=== PATIENT | male | born 1955 | race Caucasian/White ===

== ENCOUNTER → 2022-04-25 09:33 | Outpatient (CLI) | payer MEDICARE, OTHER, SELFPAY ==
[2022-04-25 11:04] LABS: Add Manual Diff / Slide Review NO; Basophils Absolute Auto 100 /uL (0-100); Basophils Percent Auto 1.1 % (0-2); Eosinophils Absolute Auto 500 /uL (0-450); Eosinophils Percent Auto 5.9 % (2-4); Hematocrit 43.7 % (41-53); Hemoglobin 14.8 g/dL (13.5-17.5); Lymphocytes Absolute Auto 1500 /uL (1100-4500); Mean Corpuscular HGB Conc 33.7 % (30-36); Mean Corpuscular Hemoglobin 32.1 PG (26-34); Mean Corpuscular Volume 95.1 fL (80-100); Monocytes Absolute Auto 600 /uL (0-900); Monocytes Percent Auto 7.8 % (3-14); Neutrophils Absolute Auto 5100 /uL (1500-7000); Neutrophils Percent Auto 66.2 % (50-75); Platelet Count 260 X10^3/uL (150-400); Red Cell Distribution Width 13.3 % (11.6-14.8); White Blood Cell Count 7.7 X10^3/uL (4.5-11.0)
[2022-04-25 11:23] LABS: Appearance Urine UA CLEAR; Bilirubin Urine UA NEGATIVE (NEGATIVE); Color Urine UA YELLOW; Glucose Urine UA NEGATIVE (Negative); Ketones Urine UA NEGATIVE (NEGATIVE); Leukocyte Esterase Urine UA NEGATIVE (NEGATIVE); Nitrite Urine UA NEGATIVE (Negative); Occult Blood Urine UA NEGATIVE (Negative); Protein Urine UA NEGATIVE (Negative); Urobilinogen Urine UA 0.2 E.U./dL (0.2); pH Urine UA 6.5 (4.5-8.0)
[2022-04-25 11:36] LABS: Bacteria Urine None Seen; Culture Indicated Urine Cult Not Indicated; RBC Urine None Seen (0-5/HPF); WBC Urine None Seen (0-5/HPF)
[2022-04-25 11:39] LABS: Blood Urea Nitrogen 25 mg/dL (9-20); Calcium 9.3 mg/dL (8.4-10.2); Carbon Dioxide 27 mmol/L (22-32); Chloride 101 mmol/L (98-107); Estimated Glomerular Filt Rate > 60 mL/min (>60); Glucose 99 mg/dL (80-110); HEMOLYSIS < 15 (0-50); Potassium 4.5 mmol/L (3.4-5.1); Sodium 137 mmol/L (137-145)
== END ==
PROVIDERS: Referring Provider Orthopaedic Surgery; Visit Provider Orthopaedic Surgery
DX: Z01.818 Encounter for other preprocedural examination (principal); R73.9 Hyperglycemia, unspecified; Z01.812 Encounter for preprocedural laboratory examination; N39.0 Urinary tract infection, site not specified
CPT/HCPCS: 36415; 80048; 81001; 83036; 85025; 93005; 93010

== ENCOUNTER → 2022-05-08 10:36 | Outpatient (CLI) | payer MEDICARE, OTHER, SELFPAY ==
[2022-05-08 11:16] LABS: COVID19 -Nasal RAPID Negative (Negative)
== END ==
PROVIDERS: Referring Provider Orthopaedic Surgery; Visit Provider Orthopaedic Surgery
DX: Z20.822 Contact with and (suspected) exposure to COVID-19 (principal)
CPT/HCPCS: 87635; C9803

== ENCOUNTER 2022-05-11 11:15 | Observation (INO) | payer MEDICARE, OTHER, SELFPAY ==
[2022-05-01 12:39] VITALS: BMI 42.0
[2022-05-09] VITALS (12 sets, daily range): BP systolic 96–148; BP diastolic 51–94; PULSE 58–89; RESP 10–18; TEMP 35.8–36.5; O2SAT 94–99; BMI 42.0
--- NOTE | 2022-05-09 | DI.RAD.S_ITS ---
PROCEDURE: XR HIP W PEL IF DONE RT 2V INDICATIONS: post total right hip TECHNIQUE: 2 view(s) of the hip acquired. COMPARISON: [facility], CR, XR HIP W PEL IF DONE RT 2V, 05/09/2022, 13:01. FINDINGS: Bones: Patient is status post right hip arthroplasty, with hardware components in expected positions. The hip joint appears congruent. The visualized bony structures appear intact. Soft tissues: Overlying postoperative changes are noted. No suspicious soft tissue densities. IMPRESSION: Post-surgical changes from right hip arthroplasty without definite evidence of acute complication. Dictated by: Bennie Arreola M.D. on 05/09/2022 at 15:38 Approved by: Bennie Arreola M.D. on 05/09/2022 at 15:41
--- NOTE | 2022-05-09 | DI.RAD.S_ITS ---
PROCEDURE: XR HIP W PEL IF DONE RT 2V INDICATIONS: post operative total right hip TECHNIQUE: Single fluoroscopic view of the intraoperative right hip replacement obtained COMPARISON: None. FINDINGS: Bones: Single fluoroscopic intraoperative image demonstrates placement of a right hip arthroplasty. IMPRESSION: Single intraoperative right hip arthroplasty image. Dictated by: Conchis Dutton M.D. on 05/09/2022 at 14:34 Approved by: Conchis Dutton M.D. on 05/09/2022 at 14:34
[2022-05-09] MEDS: LACTATED RINGERS 1,000 ML 120 ML IV ×2 (10:40→13:37)
[2022-05-09] MEDS: VANCOMYCIN 1,000 MG/200 ML PIGGYBACK 200 MG IV (10:41)
[2022-05-09] MEDS: CELECOXIB 200 MG CAPSULE PO (10:48)
[2022-05-09] MEDS: ACETAMINOPHEN 325 MG TABLET 975 MG PO (10:49)
[2022-05-09] MEDS: PREGABALIN 75 MG CAPSULE PO (10:49)
--- NOTE | 2022-05-09 11:03 | P.OP_ITS ---
Operative Date/Time/Diagnoses Date of procedure: 05/09/22 Time of procedure: 11:30 Pre-op diagnosis: right hip OA Post-op diagnosis: same Procedure & Clinicians Procedure: Right total hip arthroplasty posterior approach Same procedure as scheduled: Yes Indications: The patient has had progressively worsening right hip pain with radiographic changes consistent with arthritis. Non-operative management has failed and the patient has requested total hip replacement. The risks, benefits and alternatives to surgery were discussed with the patient prior to proceeding. Risks discussed included, but were not limited to, failure to relieve pain, leg length discrepancy, dislocation, stiffness, infection, nerve damage, deep venous thrombosis, pulmonary embolism, stroke, coma, heart attack, permanent paralysis and , as well as the potential need for eventual revision of the prosthetic. Surgeon: Valentina [facility] [employer] Gunsmith: Bassam Montelongo Anesthesia Type: General and Spinal Operative Notes Findings: Severe right hip osteoarthritis, acceptable stability, acceptable bone Closure Type: primary Specimen(s): none sent Prosthetic devices, grafts, tissues, transplants, or devices: [employer] nephew anthology size 8 standard offset, 56 mm R3 cup, 36 x -3 cobalt chrome head, neutral poly liner, one 6.5 mm screw Applied: drain(s) Estimated Blood Loss (mL): 250 Blood products transfused: none Procedure in detail: The patient was seen in the pre-operative area, where the patient identified the right hip as the operative site and this was marked with my initials. The patient received pre-operative antibiotics and was taken to the operating room and placed on the operative table in the left lateral decubitus position after satisfactory anesthesia. A timekeeper out was performed. The right leg was prepared from the ankle to the iliac crest with ChloroPrep in the usual fashion and draped through sterile drapes. The hip was approached through an approximately 20 cm incision centered over the greater trochanter and curving gently posteriorly as it went proximally. This was carried sharply to the fascia ghazal, which was divided and retracted with a self retaining retractor. The trochanteric bursa was excised with care being taken to avoid the sciatic nerve, which was identified and protected throughout the case. The short external rotators were incised and the capsulomuscular flap was raised and tagged for later repair. The hip was dislocated, and a femoral neck osteotomy performed approximately 15 mm above the lesser trochanter. Retractors were placed around the femur. The canal was opened with a box cutting osteotome, followed by a T handled reamer and a lateralizing reamer. The chili pepper broach was then used, followed by sequential broaching until there was good stability of the broach in the femur. Retractors were placed to expose the acetabulum. The labrum and central soft tissues were removed. Reaming was performed initially going up in 2 mm i ncrements, then 1 mm increments until good bite was obtained with an odd sized reamer. The cup 1 mm larger than the last reamer was then inserted using the appropriate anteversion guides. A trial neutral liner was placed. The broach was placed in the canal. A trial head and neck were then placed and the hip relocated and checked for leg length and stability. An intraoperative film confirmed the component position and no evidence of fracture. The patient was stable in the position of sleep, of squatting, and could be put through a range of motion with 45 degrees internal rotation without dislocation. At 90 degrees flexion, internal rotation to 70? was possible before dislocation. This was felt to be satisfactory and the appropriate components were opened, and the trials were removed. The acetabulum was further stabilized with a single screw. The acetabular liner was impacted into position. The final stem was then impacted into the prepared femoral canal. The femoral heads were tried. The hip was meticulously irrigated with normal saline. Finally the femoral head was impacted onto the stem. The acetabulum was cleared of all material and the hip relocated one final time. The capsulomuscular flap was then repaired to the greater trochanter though an awl hole using the tag sutures. The short external rotators were repaired with a nonabsorbable suture. A deep drain was placed and brought out anteriorly. The fascia ghazal was closed with Vicryl. The subcutaneous layer was closed with barbed sutures and skin mervin. A valerie dressing was applied and the patient was taken to recovery having tolerated the procedure well. Complications: none Post-operative Condition: stable Disposition: Acute Care Plan for aftercare: The patient will be maintained on a standard total hip replacement protocol with weight bearing as tolerated and posterior hip precautions. The patient will receive Aspirin and sequential compression devices for DVT prophylaxis. The patient will be discharged home when safe for the home environment.
--- NOTE | 2022-05-09 11:03 | PM.PREOP ---
Pre-operative Note COVID-19 COVID-19 status: Negative Interval Note History & Physical reviewed/Exam performed by Physician: Yes Changes to H&P: No
[2022-05-09] MEDS: ALBUTEROL 2.5 MG/3 ML NEB (ADULT) INH (11:20)
[2022-05-09] MEDS: TRANEXAMIC ACID 1,000 MG VIAL 2000 MG INJ ×2 (12:00→13:38)
[2022-05-09] MEDS: CEFAZOLIN 2 GM/100 ML PREMIX 100 ML IV (12:00)
--- NOTE | 2022-05-09 12:34 | SUR.OPER ---
Lateral on padded OR bed. Gel axillary roll. Arms secured on padded armboard with pillow supporting top arm. Gel pad X2 under left arm and supporting wrist. Padded hip positioner braces x4 - anterior and posterior chest and pelvis. Additional gel pad used anterior pelvis. Gel pad under bottom leg from knee to foot and secured with tape over sheet.
[2022-05-09] MEDS: SODIUM CHLORIDE IRRIG SOLUTION 250 ML, POVIDONE-IODINE SPONGE STICKS 1 APPLIC IRR (12:43)
[2022-05-09] MEDS: BUPIVACAINE 0.5% W/ EPI (PF) 30 ML VIAL INJ (12:49)
[2022-05-09] MEDS: BUPIVACAINE LIPOSOME 266 MG/20 ML VIAL INJ (12:49)
[2022-05-09] MEDS: SODIUM CHLORIDE 0.9% FLUSH 10 ML IV (12:54)
[2022-05-09] MEDS: EPINEPHrine 1 MG/ML IRR (13:29)
[2022-05-09] MEDS: OXYCODONE IR 5 MG TABLET 10 MG PO (14:49)
[2022-05-09] MEDS: OXYCODONE IR 10 MG TABLET PO ×2 (16:21→20:42)
[2022-05-09] MEDS: polyethylene glycoL 3350 17 GM POWD.PACK PO (16:22)
[2022-05-09] MEDS: HYDROMORPHONE 2 MG TABLET PO (16:49)
[2022-05-09] MEDS: LACTATED RINGERS 1,000 ML 125 ML IV (17:00)
[2022-05-09] MEDS: IBUPROFEN 400 MG TABLET PO (19:09)
[2022-05-09] MEDS: ACETAMINOPHEN 325 MG TABLET 650 MG PO (19:10)
[2022-05-09] MEDS: TRAVOPROST 0.004% 1 EACH EYE-BOTH (21:02)
[2022-05-09] MEDS: ASPIRIN EC 81 MG TABLET PO (21:02)
[2022-05-09] MEDS: DOCUSATE 100 MG CAPSULE PO (21:02)
[2022-05-09] MEDS: CEFAZOLIN 3 GM IN 0.9 % NACL 3 GM/100 ML PLAST..BAG IV (21:50)
--- NOTE | 2022-05-09 23:12 | PC.NURSE ---
Pt is alert and oriented X 4 able to make needs known , On Room air while awake but placed on 022l for sleep with history of Obstructive sleep apnea. pt maintaining oxygen levels at mid to high 90s with Oxygen. voids small frequent amounts, bladder scan minimal 30 -50 post void. will con to monitor.
[2022-05-10] VITALS: BP 107/69; PULSE 84; RESP 17; TEMP 36.9; O2SAT 96
[2022-05-10] MEDS: OXYCODONE IR 10 MG TABLET PO ×4 (00:52→12:42)
[2022-05-10] MEDS: IBUPROFEN 400 MG TABLET PO ×5 (00:53→23:20)
[2022-05-10] MEDS: LACTATED RINGERS 1,000 ML 125 ML IV (00:56)
[2022-05-10 04:00] VITALS: BP 104/56; PULSE 76; RESP 19; TEMP 36.6; O2SAT 96
[2022-05-10] MEDS: CEFAZOLIN 3 GM IN 0.9 % NACL 3 GM/100 ML PLAST..BAG IV (04:05)
[2022-05-10] MEDS: ACETAMINOPHEN 325 MG TABLET 650 MG PO ×4 (05:02→23:20)
[2022-05-10 07:04] LABS: Hematocrit 36.3 % (41-53); Hemoglobin 12.2 g/dL (13.5-17.5)
[2022-05-10 08:21] VITALS: BP 116/62; PULSE 82; RESP 18; TEMP 36.6; O2SAT 95
[2022-05-10] MEDS: ASPIRIN EC 81 MG TABLET PO ×2 (09:47→22:04)
[2022-05-10] MEDS: DOCUSATE 100 MG CAPSULE PO ×2 (09:48→22:04)
[2022-05-10] MEDS: AMLODIPINE 5 MG TABLET PO (09:48)
--- NOTE | 2022-05-10 10:06 | PT.IIE ---
Current Diagnoses Unilateral primary osteoarthritis, right hip (05/09/22) Unilateral primary osteoarthritis, left knee (05/09/22) Surgery Performed Operation Date: 05/09/22 12:00 Actual Procedures p Total Hip Arthroplasty(Right) - Valentina Allen MD Surgical History (Last Reviewed 05/10/22 @ 11:16 by Lexii Abraham PA-C) History of urologic surgery (~1994) S/P gastroplasty (~1986) Medical History (Last Reviewed 05/10/22 @ 11:16 by Lexii Abraham PA-C) Dry skin Enlarged prostate Glaucoma HTN (hypertension) Neuropathy Osteoarthritis Suspected sleep apnea Physical Therapy Inpatient Evaluation/Re-Eval M1 PT/OT-IP Prior Functional Status Start: 05/10/22 13:19 Freq: NEEDED Status: Active Protocol: Document 05/10/22 10:06 AB (Rec: 05/10/22 13:34 AB [email or web address]) Medical Review Prior Functional Status Medical History Reviewed Yes Communication able to make needs known Mobility and Gait pt staed that he is indpeendent with all mobilities and ambulation indoors without AD but occasionally uses a SPC; uses a SPC for outdoor mobility Social History Household Members none Living Arrangements Apartment/Condo Number of Floors (Floors) One Floor Number of Stairs To Enter/Railing? no steps to enter Home Environment High Toilet,Walk in Shower, Built-In Shower Seat Home Equipment Four Wheel Walker,Straight Cane,Shower Seat without Backrest,Hand Held Shower,Grab Bars In Shower Additional Social History Comment pt stated that his friend will stay with him for 2-3 days to assist him M2 PT-IP Current Condition Start: 05/10/22 13:19 Freq: NEEDED Status: Active Protocol: Document 05/10/22 10:06 AB (Rec: 05/10/22 13:34 AB [email or web address]) Physical Therapy Current Condition Current Condition Evaluation Date 05/10/22 Treatment Diagnosis s/p R AUGIE posterior approach; difficulty in walking Onset Date 05/09/22 M3 PT-IP Subjective Start: 05/10/22 13:19 Freq: NEEDED Status: Active Protocol: Document 05/10/22 10:06 AB (Rec: 05/10/22 13:34 AB [email or web address]) Subjective Physical Therapy Visit Type Type Initial Evaluation Visit Start Time 10:06 Visit Stop Time 11:08 Total Visit Minutes 62 Number of FABRIC WORKER LEADER Visits 0 Physical Therapy Visit Comments Patient Comments agreeable to do PT Therapy Pain Assessment Pain When Pain Assessed At Rest Pain Present Pain Present Pain Reported Location Right Hip Intensity 5 Scale Used Numeric (0 - 10) Pain Management Techniques Apply Cold,Distraction, Modification of Treatment,Re- positioning,Timing of Activity with Medications M4 PT-IP Mobility and Gait Start: 05/10/22 13:19 Freq: NEEDED Status: Active Protocol: Document 05/10/22 10:06 AB (Rec: 05/10/22 13:34 AB [id number]) PT-Bed Mobility Assessment Supine to Sit Supine to Sit Moderate Assistance,1 Person Assistance PT-Transfer Assessment Sit to and From Stand Sit to and from Stand Moderate Assistance,Maximum Assistance,1 Person Assistance ,Use of Upper Extremities Equipment Transfer Assistive Device Gait Belt,Front Wheeled Walker Orthotic/Prosthetic Devices or Brace: No Transfers Transfer Destination Chair Transfer Technique ambulated Transfer Ability Level of Assist Moderate Assistance,1 Person Assistance,Use of Upper Extremities Comments Mobility Comments reviewed posterior hip precautions with pt and pt requires cues. pt completed supine to sit mod A for LE movement and max cues for hip precautions. pt able to sit on EOB CGA. completed sit to stand from EOB mod A to max A and max cues. pt with trunk rotation to the L during sit to stand and educated again on hip precaution of not turning LE inwards. pt ambulated to the chair using FWW mod A and max cues for quads activation. pt wanting to use the urinal . able to stand using FWW for support mod A while NAC assisted pt with use of urinal . pt sat back on chair. mod A for descent. positioned on chair. call light and table placed within reach. caregiver set up at 1pm today with pt's friend. also informed pt that he will need a FWW. pt given options and wants a FWW dispensed through the hospital. informed case florentin for FWW order. Gait Assessment Gait Gait Assistance Required: Moderate Assistance,1 Person Assist Distance (Feet) 15 Able to Maintain Weight Bearing Status No During Gait Assistive Devices Assistive Device Gait Belt,Front Wheeled Walker Orthotic/Prosthetic Devices or Brace: No Gait Deviations General Gait Pattern Antalgic,Decreased Stride Length,Decreased Feet Clearance Factors Limiting Gait Function Factors Limiting Gait Function Decreased Activity Tolerance, Decreased Strength,Difficulty Following Directions,Limited Range of Motion,Pain,Poor Balance,Poor Safety Awareness PT-Balance Assessment Sitting Balance and Reactions Static Sitting Balance Ability Good Dynamic Sitting Balance Ability Fair Standing Balance and Reactions Static Standing Balance Ability Poor Dynamic Standing Balance Ability Poor Device Used FWW M5 PT-IP Objective Assessments Start: 05/10/22 13:19 Freq: NEEDED Status: Active Protocol: Document 05/10/22 10:06 AB (Rec: 05/10/22 13:34 [email or web address]) Orientation Orientation/Cognition Level of Alertness Alert Orientation Name,Place,Situation Language Function Ability Hard of Hearing Safety Awareness Decreased Safety Awareness Memory Description Short Term Impaired Gross Range of Motion Lower Extremity ROM Assessment Within Functional Limits Strength Lower Extremity Strength Assessment Bilaterally Impaired Comments Strength Comments RLE: 3-/5 LLE: 3+/5 Coordination Assessment Gross Coordination Gross Coordination WNL Muscle Tone Muscle Tone WNL Yes M6 PT-IP Treatment Start: 05/10/22 13:19 Freq: NEEDED Status: Active Protocol: Document 05/10/22 10:06 AB (Rec: 05/10/22 13:34 [email or web address]) Physical Therapy Treatment Education Education Provided Precautions,Weight Bearing Status,Post-Op Packet,Safety M7 PT-IP Assessment and Plan Start: 05/10/22 13:19 Freq: NEEDED Status: Active Protocol: Document 05/10/22 10:06 AB (Rec: 05/10/22 13:34 [email or web address]) PT Summary Assessment and Plan Potential Rehabilitation Potential Fair Status of Condition at Evaluation Evolving Summary Impairments Pain,ROM,Strength,Balance, Coordination,Sensation,Tone, Cognition,Bed Mobility, Transfers,Gait,Activity Tolerance Assessment Summary pt requiring mod to max A with mobility using FWW. caregiver training set up at 1pm today. will continue to assess progress and depending if caregiver will be able to assist pt safely but at this time may require SNF rehab. Goals Bed Mobility Goal Standby Assistance Transfer Goal Standby Assistance,Front Wheeled Walker Gait Goal Standby Assistance,Front Wheel Walker Gait Distance 150 Other Goals improve bed mobility, transfers using fWW and ambulation using FWW ~ 200 ft mod I Days to Meet Goals 10 Frequency of Treatment Frequency Of Treatment Twice a Day Treatment Plan Physical Therapy Treatment Plan Bed Mobility Training,Transfer Training,Gait Training, Therapeutic Exercise,Balance Retraining,Post Op Education, Discharge Planning,Hot or Cold Pack,Neuromuscular Re-ed, Coordination Retraining,Manual Therapy Other Recommendations and Next Treatment caregiver trainin/22 @ 1pm Focus Precautions Posterior Hip Precautions No Hip Flexion > 90 degrees,No Hip Internal Rotation,No Hip Adduction Weight Bearing Status Weight Bearing Status Weight Bear as Tolerated Allowed Weight Bearing Amount (enter % RLE WBAT or #) (%) Recommendations To Nursing Amount of Assist Needed 1 Person Assist Discharge Recommendations PT Discharge Recommendations Home with 11/03 Assist Available,Home Health,SNF Rehab,Home vs SNF Equipment Needed for Home Before FWW Discharge Transportation Needs at Discharge Private Vehicle,Wheelchair/ Cabulance
--- NOTE | 2022-05-10 11:15 | PM.PNPO.1 ---
Subjective Subjective Date Patient Seen: 05/10/22 Time Patient Seen: 07:35 Interval history: Patient is complaining of moderate to severe right hip pain. He has been using oxycodone 5-10 mg, Dilaudid 2 mg orally in addition a Tylenol and ibuprofen. He has not worked with physical therapy yet. He does not have anyone to care for him at home until tomorrow. Exam Vital Signs (past 8 hours): - 05/10/22 04:00 05/10/22 08:21 Temperature 97.9 F 97.8 F Pulse Rate 76 82 Respiratory Rate 19 18 Blood Pressure 104/56 L 116/62 Pulse Oximetry 96 95 Oxygen Flow Rate 0 Oxygen Delivery Method Room Air Oxygen Flow Rate 0 Narrative Exam Narrative: Pleasant 67-year-old male, resting comfortably in bed, no acute distress. Rosmery dressing is in place and functioning, dressing is clean, dry, intact. No surrounding erythema or induration. Bilateral lower extremity: Motor functions are grossly intact, sensation is grossly intact to light touch, calves are soft and nontender to palpation. Hemovac was removed on exam today. Objective Labs Result Diagrams: 05/10/22 06:32 Labs: Laboratory Results - last 24 hr 05/10/22 06:32 Hgb 12.2 L Hct 36.3 L PFSH Medical History Dry skin Enlarged prostate Glaucoma HTN (hypertension) Neuropathy Osteoarthritis Suspected sleep apnea Surgical History History of urologic surgery (~1994) S/P gastroplasty (~1986) Social History household members: none Smoking Status: Current every day smoker alcohol intake: former Assessment & Plan Post-op Postoperative Procedures: Procedures Operation Date: 05/09/22 12:00 Actual Procedure Side Surgeon p Total Hip Arthroplasty Right Valentina Allen MD Postoperative day: 1 Postoperative status: marginal pain control Postoperative status narrative: -stable status post right total hip arthroplasty, posterior approach -marginal pain control -orthostatic hypotension Postoperative plan narrative: -mobilize with PT. Weightbearing as tolerated with front wheel walker. Maintain posterior hip precautions x6 weeks -continue with multimodal pain management. The patient has a prescription for oxycodone 5 mg from his preop appointment with Dr. Allen at home. -aspirin 81 mg twice daily x6 weeks for DVT prophylaxis -continue to monitor hypotension, hold any BP meds until BP is greater than 120/80. -DC home likely tomorrow
[2022-05-10 12:03] VITALS: BP 122/77; PULSE 81; RESP 18; TEMP 37; O2SAT 95
[2022-05-10] MEDS: SODIUM CHLORIDE 0.9% 1,000 ML 100 ML IV (12:32)
--- NOTE | 2022-05-10 14:15 | PT.IPTN ---
Current Diagnoses Unilateral primary osteoarthritis, right hip (05/09/22) Unilateral primary osteoarthritis, left knee (05/09/22) Surgery Performed Operation Date: 05/09/22 12:00 Actual Procedures p Total Hip Arthroplasty(Right) - aVlentina Allen MD Physical Therapy Treatment Note M2 PT-IP Current Condition Start: 05/10/22 13:19 Freq: NEEDED Status: Active Protocol: Document 05/10/22 10:06 AB (Rec: 05/10/22 13:34 AB [id number]) Physical Therapy Current Condition Current Condition Evaluation Date 05/10/22 Treatment Diagnosis s/p R AUGIE posterior approach; difficulty in walking Onset Date 05/09/22 M3 PT-IP Subjective Start: 05/10/22 13:19 Freq: NEEDED Status: Active Protocol: Document 05/10/22 13:44 KS (Rec: 05/10/22 15:08 KS [id number]) Subjective Physical Therapy Visit Type Type Treatment Note Visit Start Time 13:44 Visit Stop Time 14:15 Total Visit Minutes 31 Notes Friend present for caregiver training Number of DONOR RELATIONS MANAGER Visits 1 Physical Therapy Visit Comments Patient Comments agreeable to do PT Therapy Pain Assessment Pain When Pain Assessed During Mobility Pain Present Pain Present Pain Reported Location Right Hip Scale Used not quantified Pain Behaviors Guarding,Holding Area Pain Management Techniques Distraction,Elevation, Modification of Treatment,Re- positioning M4 PT-IP Mobility and Gait Start: 05/10/22 13:19 Freq: NEEDED Status: Active Protocol: Document 05/10/22 13:44 KS (Rec: 05/10/22 15:08 KS [id number]) PT-Bed Mobility Assessment Supine to Sit Supine to Sit Standby Assistance,1 Person Assistance,Bedrails Sit to Supine Sit to Supine Standby Assistance,1 Person Assistance,Head of Bed Elevated,Bedrails Scooting Scooting to Edge of Bed Contact Guard Assistance PT-Transfer Assessment Sit to and From Stand Sit to and from Stand Minimal Assistance,1 Person Assistance,Use of Upper Extremities Equipment Transfer Assistive Device Gait Belt,Front Wheeled Walker Orthotic/Prosthetic Devices or Brace: No Transfers Transfer Destination Bed Transfer Technique Lateral steps Transfer Ability Level of Assist Minimal Assistance,1 Person Assistance,Use of Upper Extremities Comments Mobility Comments Pt in bed upon arrival and caregiver present. Pt able to recall 2/3 precautions (No IR) SBA to CGA w/ cues for sup<> sit and scooting EOB. Demonstrated gait belt application and FWW guarding to pts caregiver who was able to provide Min A for pt sit<> stand. Upon standing, pt tremulous, BP stable. Pt then reported lightheadedness and stated he could not tolerate ambulation this PM. He was able to take 3 lateral steps head of bed for repositioning. CGA for sit<>sup. Reveiwed exercises and pt left in bed w / all needs in reach, lightheadedness subsided. Gait Assessment Gait Gait Assistance Required: Minimum Assistance,1 Person Assist Distance (Feet) 2 Able to Maintain Weight Bearing Status No During Gait Assistive Devices Assistive Device Gait Belt,Front Wheeled Walker Orthotic/Prosthetic Devices or Brace: No Gait Deviations General Gait Pattern Antalgic,Decreased Stride Length,Decreased Feet Clearance Factors Limiting Gait Function Factors Limiting Gait Function Decreased Activity Tolerance, Decreased Strength,Difficulty Following Directions,Limited Range of Motion,Pain,Poor Balance,Poor Safety Awareness Comments Gait Comments 3x lateral steps towards HOB only, unable to tolerate further ambulation this PM. PT-Balance Assessment Sitting Balance and Reactions Static Sitting Balance Ability Good Dynamic Sitting Balance Ability Fair Standing Balance and Reactions Static Standing Balance Ability Poor Dynamic Standing Balance Ability Poor Device Used FWW M5 PT-IP Objective Assessments Start: 05/10/22 13:19 Freq: NEEDED Status: Active Protocol: Document 05/10/22 10:06 AB (Rec: 05/10/22 13:34 AB [id number]) Orientation Orientation/Cognition Level of Alertness Alert Orientation Name,Place,Situation Language Function Ability Hard of Hearing Safety Awareness Decreased Safety Awareness Memory Description Short Term Impaired Gross Range of Motion Lower Extremity ROM Assessment Within Functional Limits Strength Lower Extremity Strength Assessment Bilaterally Impaired Comments Strength Comments RLE: 3-/5 LLE: 3+/5 Coordination Assessment Gross Coordination Gross Coordination WNL Muscle Tone Muscle Tone WNL Yes M6 PT-IP Treatment Start: 05/10/22 13:19 Freq: NEEDED Status: Active Protocol: Document 05/10/22 13:44 KS (Rec: 05/10/22 15:08 KS [id number]) Physical Therapy Treatment Exercises Exercises Ankle Pumps,Gluteal Sets,Quad Sets Education Education Provided Precautions,Weight Bearing Status,Post-Op Packet,Safety Other Treatments Other Treatment Performed Initiated caregiver training M7 PT-IP Assessment and Plan Start: 05/10/22 13:19 Freq: NEEDED Status: Active Protocol: Document 05/10/22 13:44 KS (Rec: 05/10/22 15:08 KS [id number]) PT Summary Assessment and Plan Potential Rehabilitation Potential Fair Summary Impairments Pain,ROM,Strength,Balance, Coordination,Sensation,Tone, Cognition,Bed Mobility, Transfers,Gait,Activity Tolerance Progress Towards Goals Slow Progress due to Pain,Slow Progress due to Activity Tolerance Assessment Summary Pt limited by pain and lghtheadedness this PM. Initiated caregiver training w / pts friend who was able to apply gait belt, provide assistance and cues for sit<> stand w/ FWW. Pt SBA to CGA for bed mobility w/ bed rails and Min A for sit<>stand w/ FWW. He was unable to tolerate ambulation this treatment and will need to increase ambulation distance prior to d /c since he plans on going home. Will assess pts mobility and carryover of caregiver training tomorrow 05/11 at 10: 30 AM. Goals Bed Mobility Goal Standby Assistance Transfer Goal Standby Assistance,Front Wheeled Walker Gait Goal Standby Assistance,Front Wheel Walker Gait Distance 150 Other Goals improve bed mobility, transfers using fWW and ambulation using FWW ~ 200 ft mod I Days to Meet Goals 10 Frequency of Treatment Frequency Of Treatment Twice a Day Treatment Plan Physical Therapy Treatment Plan Bed Mobility Training,Transfer Training,Gait Training, Therapeutic Exercise,Balance Retraining,Post Op Education, Discharge Planning,Hot or Cold Pack,Neuromuscular Re-ed, Coordination Retraining,Manual Therapy Other Recommendations and Next Treatment caregiver trainin/23 @ [facility] 1030 am Precautions Posterior Hip Precautions No Hip Flexion > 90 degrees,No Hip Internal Rotation,No Hip Adduction Weight Bearing Status Weight Bearing Status Weight Bear as Tolerated Allowed Weight Bearing Amount (enter % RLE WBAT or #) (%) Recommendations To Nursing Amount of Assist Needed 1 Person Assist Discharge Recommendations PT Discharge Recommendations Home with 11/03 Assist Available,Home Health,Home vs SNF Equipment Needed for Home Before FWW Discharge Transportation Needs at Discharge Private Vehicle
--- NOTE | 2022-05-10 14:42 | CM.DANOTE ---
Patient is a 67 yo male who was admitted on 05/09/22 for RTHA. Pt has MCR and [employer] Supp for insurance and his PCPis Zoya Hammonds. EMR was reviewed. Per Ortho, pt tolerated procedure well but likely not stable for d/c yet today. Per PT, recommending home vs SNF although pt has plans for home and PT requested orders for FWW. CG training set up with pt's friend for this PM. SW met bedside with pt and explained role and pt confirms he lives in [place] alone and is active and independent at baseline and works but has until mid Dec off for this surgery to recover. Pt denies any hx of HH or SNF. Pt states his friend plans to take the rest of the week off and stay with pt for assist and his friend has a hx of her own LTHA and aware of the precautions and limitations and therefore will be a good CG for pt at d/c. Pt states she would be available for CG training prior to discharge. Pt states he contacted an outpt PT clinic prior to surgery and he is set up to begin within a week of discharge. Pt currently does not anticipate any needs. Plan: SW to follow closely for further PT to confirm safe plan of home with friend assist and outpt PT and r/o possible HH needs. Pt currently declines the need for SNF. SCOOTER Ryan Discharge Planning/Care Management CM Discharge Assessment Start: 05/10/22 14:40 Freq: Status: Active Protocol: Document 05/10/22 14:40 BF (Rec: 05/10/22 14:42 [id number]) Discharge Planning Assessment Assigned Field Marketing Specialist SCOOTER Ly Advance Directives? No Advance Directives on File No History Provided By Patient,Medical Record Has Patient been admitted in last 30 No days? Prior Living Arrangements Apartment/Condo Household Members none Type of transporation used prior to Drives own vehicle admit Independent with ADL's Yes Is patient alert and oriented? Yes Caregiver for Another No Community Services used prior to Physical Therapy admission: Patient/Family Preference OP PT Therapy Barriers to Discharge No Discharge Plan Home Community Services Physical Therapy Transportation Arrangement Friend is planning to stay at d/c and provide transport home Referrals Initiated None needed Additional Comment r/o HH, pt already has outpt PT set up Whiteboard Updated in Patient Room with Yes name and ext. # of Field Marketing Specialist Review Status In Process Please Provide Date Initial DC 05/10/22 Assessment Was Performed Next Review Type Continued Stay Review Pre-Anesthesia Assessment Start: 05/01/22 12:39 Freq: Status: Complete Protocol: Document 05/01/22 12:39 [facility] (Rec: 05/01/22 13:42 CAB [id number]) Pre-Anesthesia Assessment Preferred Name Pat Patient Information Reviewed Via Phone Assessment Assessment Completed With Patient Diagnostic Results BMP/CMP,CBC,EKG Comment Labs/ECG @ 04/25/22, COVID screen @ 05/07/22 Primary Care Provider Zoya Hammonds Seen Specialist in Last 12 Months Yes Specialist Seen Orthopedist Primary Language Tongan Calender Machine Operator Required No Height 175.26 cm Weight 129.274 kg Body Mass Index (BMI) 42.0 Hearing Ability Normal Visual Assist Magnifying Glass Dentition Type Teeth, Natural Present,Teeth, Missing Barriers to Learning None Other Aids No Hx Anesthesia Reactions No Hx Family Anesthesia Reaction No Hx Malignant Hyperthermia No Hx Blood Transfusions No Anesthesia Review Requested No Disciplinary Hearing Officer No alcohol intake former Alcohol Intake Frequency Other: Quit 30 years ago Smoking Status Current every day smoker Smoking cigarettes per day 6 Substance Use Type does not use Pain Present Pain Reported Musculoskeletal Symptoms Abnormal Gait,Difficulty Walking,Joint Pain,Limited Range of Motion History of Falling (Recent or History of No ) Patient is completely paralyzed or No completely immobile Prosthesis or Orthotic Device Cane Mental Status Oriented to own ability Is patient on oxygen? No Does patient have WAYNE/SOB No Hx Sleep Apnea No Suspected Sleep Apnea Yes: STOP BANG positive Currently Taking a Beta Rony No Can You Climb a Flight of Stairs Without No: Pt states r/t pain SOB Hx Chest Pain No Hx SOB No Hx Syncope or Dizziness No Anti-Coagulant Therapy No Has a Hand Rounder No Cardiac Testing No Hx Pacemaker/ICD No Pacemaker Rep Required? No Cardiac Clearance Received Not Applicable Diet Type At Home Regular dysphagia No: Does not eat beef Gastrointestinal Symptoms Constipation Bladder Pattern Frequency,Nocturia,Urgency Urinary Catheter Present No Hx Urinary Self Catheterization No Diabetes No HgbA1C 6.0 Date 04/25/22 Hx Drug Resistant Organism No Presence of External or Internal Medical No Devices Have you had any close contact with No someone diagnosed with COVID-19? Received a COVID vaccine? Yes Received all doses? Yes Marital Status / x 1 year Lives With none Prior Living Arrangements Apartment/Condo Number of Floors (Floors) One Floor Support System Friend(s) Does the Patient Have Assistance After Yes: Friend will stay with pt Surgery for 2 days ONLY after surgery Patient Discharge Plan Description Return Home Comment Pt advised 1-2 day length of stay per surgeon Feels Safe in Current Environment Yes Been Physically Hurt or Threatened By a No Person in Current Environment Do you have thoughts of harming yourself None or others? Are you currently considering suicide? No Do you have a plan to hurt yourself or No Plan others? Do You Have Any Spiritual Beliefs That No May Affect Your HC Choices? Do You Have Any Cultural Practices That No May Affect Your HC Choices? Who Can We Speak to About Patient's Care Family, friends Identifying Code for Release of Patient Declines to issue Information Health Care Proxy/Next of Kin Karson (son) Health Care Proxy Emergency Contact Name Faith Morris (good friend who will stay w/pt @ [place]) Emergency Contact Advance Directives? No Power of Train Station Server No PAC Instructions Durable medical equipment, Medications to take/avoid, Nasal antibiotic,No ETOH/ petroleum product on skin DOS, NPO,Pre-surgical wash,Sensory aids,Sturdy shoes/comfortable clothes,Do not bring valuables and remove jewelry Stop Bang Assessment Do you snore loudly (louder than talking Yes or loud enough to be heard through closed doors) Do you have, or are you being treated Yes for, high blood pressure Is your BMI more than 35 kg/m2 Yes Age over 50 Yes Estimated neck circumference greater Unknown than 40cm or 16in Gender male Yes Result Positive
[2022-05-10 18:11] VITALS: BP 105/61; PULSE 84; RESP 18; TEMP 36.9; O2SAT 93
[2022-05-10] MEDS: OXYCODONE IR 5 MG TABLET PO (18:43)
[2022-05-10] MEDS: polyethylene glycoL 3350 17 GM POWD.PACK PO (18:43)
[2022-05-10 21:30] VITALS: BP 132/73; PULSE 81; RESP 18; TEMP 36.9; O2SAT 94
[2022-05-11] MEDS: SODIUM CHLORIDE 0.9% 1,000 ML 100 ML IV (03:10)
[2022-05-11 03:40] VITALS: BP 121/74; PULSE 85; RESP 17; TEMP 36.7; O2SAT 90
[2022-05-11] MEDS: IBUPROFEN 400 MG TABLET PO ×2 (06:16→13:22)
[2022-05-11] MEDS: ACETAMINOPHEN 325 MG TABLET 650 MG PO ×2 (06:17→13:21)
[2022-05-11 07:14] VITALS: O2SAT 97
[2022-05-11 08:26] VITALS: BP 103/65; PULSE 73; RESP 18; TEMP 36.3; O2SAT 96
[2022-05-11] MEDS: DOCUSATE 100 MG CAPSULE PO (08:47)
[2022-05-11] MEDS: AMLODIPINE 5 MG TABLET PO (08:47)
[2022-05-11] MEDS: ASPIRIN EC 81 MG TABLET PO (08:47)
--- NOTE | 2022-05-11 08:48 | PC.NURSE ---
Pt states, still haven't had bowel movement yet. Educated pt about walking, drinking more fluids, and how oxycodone can contribute to constipation. Discussed miralax for constipation. Pt states, will try miralax after he is done with his breakfast.
--- NOTE | 2022-05-11 11:22 | PT.IPTN ---
Current Diagnoses Unilateral primary osteoarthritis, right hip (05/11/22) Unilateral primary osteoarthritis, left knee (05/11/22) Surgery Performed Operation Date: 05/09/22 12:00 Actual Procedures p Total Hip Arthroplasty(Right) - Valentina Allen MD Physical Therapy Treatment Note M2 PT-IP Current Condition Start: 05/10/22 13:19 Freq: NEEDED Status: Active Protocol: Document 05/10/22 10:06 AB (Rec: 05/10/22 13:34 AB [id number]) Physical Therapy Current Condition Current Condition Evaluation Date 05/10/22 Treatment Diagnosis s/p R AUGIE posterior approach; difficulty in walking Onset Date 05/09/22 M3 PT-IP Subjective Start: 05/10/22 13:19 Freq: NEEDED Status: Active Protocol: Document 05/11/22 10:52 KS (Rec: 05/11/22 13:49 KS [id number]) Subjective Physical Therapy Visit Type Type Treatment Note Visit Start Time 10:52 Visit Stop Time 11:22 Total Visit Minutes 30 Notes Friend present for caregiver training Number of SWITCH HOUSE OPERATOR Visits 2 Physical Therapy Visit Comments Patient Comments agreeable to do PT Therapy Pain Assessment Pain When Pain Assessed During Mobility Pain Present Pain Present Pain Reported M4 PT-IP Mobility and Gait Start: 05/10/22 13:19 Freq: NEEDED Status: Active Protocol: Document 05/11/22 10:52 KS (Rec: 05/11/22 13:49 KS [id number]) PT-Bed Mobility Assessment Supine to Sit Supine to Sit Standby Assistance,1 Person Assistance,Bedrails Sit to Supine Sit to Supine Standby Assistance,1 Person Assistance,Head of Bed Elevated,Bedrails Scooting Scooting to Edge of Bed Contact Guard Assistance PT-Transfer Assessment Sit to and From Stand Sit to and from Stand Contact Guard Assistance,1 Person Assistance,Use of Upper Extremities Equipment Transfer Assistive Device Gait Belt,Front Wheeled Walker Orthotic/Prosthetic Devices or Brace: No Transfers Transfer Destination Bed Transfer Technique Pt ambulated Transfer Ability Level of Assist Contact Guard Assistance,1 Person Assistance,Use of Upper Extremities Comments Mobility Comments Pt in bed upon arrival and caregiver present. Pt on 1L O2 and O2 96%. Pt SBA for bed mobility, pts caregiver applied gait belt and assist for sit<>stand. Pt ambulated ~ 60 ft in room w/ FWW SBA w/ cues for upright posture. Pts O2 >94% on RA during all mobility. Returned to bed and reviewed precautions and exercises. Pt left in bed w/ all needs in reach. Gait Assessment Gait Gait Assistance Required: Standby Assistance,1 Person Assist Distance (Feet) 60 Able to Maintain Weight Bearing Status No During Gait Assistive Devices Assistive Device Gait Belt,Front Wheeled Walker Orthotic/Prosthetic Devices or Brace: No Gait Deviations General Gait Pattern Antalgic,Decreased Stride Length,Decreased Feet Clearance,Flexed Trunk Factors Limiting Gait Function Factors Limiting Gait Function Decreased Activity Tolerance, Decreased Strength,Limited Range of Motion,Pain,Poor Balance Comments Gait Comments Pt able to increase ambulation distance, limited by anurag and low tolerance for activity but able to ambulate further than he will need to in order to safely enter home. Stair Climbing Assessment Comments Stair Climbing Comments Not assessed, no stairs at home. PT-Balance Assessment Sitting Balance and Reactions Static Sitting Balance Ability Good Dynamic Sitting Balance Ability Good Standing Balance and Reactions Static Standing Balance Ability Good Dynamic Standing Balance Ability Fair Device Used FWW M5 PT-IP Objective Assessments Start: 05/10/22 13:19 Freq: NEEDED Status: Active Protocol: Document 05/10/22 10:06 AB (Rec: 05/10/22 13:34 AB [id number]) Orientation Orientation/Cognition Level of Alertness Alert Orientation Name,Place,Situation Language Function Ability Hard of Hearing Safety Awareness Decreased Safety Awareness Memory Description Short Term Impaired Gross Range of Motion Lower Extremity ROM Assessment Within Functional Limits Strength Lower Extremity Strength Assessment Bilaterally Impaired Comments Strength Comments RLE: 3-/5 LLE: 3+/5 Coordination Assessment Gross Coordination Gross Coordination WNL Muscle Tone Muscle Tone WNL Yes M6 PT-IP Treatment Start: 05/10/22 13:19 Freq: NEEDED Status: Active Protocol: Document 05/11/22 10:52 KS (Rec: 05/11/22 13:49 KS [id number]) Physical Therapy Treatment Exercises Exercises Ankle Pumps,Gluteal Sets,Quad Sets,Heel Slides,Supine Hip Abduction Education Education Provided Precautions,Weight Bearing Status,Post-Op Packet,Safety Other Treatments Other Treatment Performed Completed caregiver training. M7 PT-IP Assessment and Plan Start: 05/10/22 13:19 Freq: NEEDED Status: Active Protocol: Document 05/11/22 10:52 KS (Rec: 05/11/22 13:49 KS [id number]) PT Summary Assessment and Plan Potential Rehabilitation Potential Good Summary Impairments Pain,ROM,Strength,Balance, Coordination,Sensation,Tone, Cognition,Bed Mobility, Transfers,Gait,Activity Tolerance Progress Towards Goals Slow Progress due to Pain,Slow Progress due to Activity Tolerance Assessment Summary Pt abl to progress mobility and gait today, SBA. Pts caregiver able to provide appropriate assist and cues. Pt maintained O2 >94% during mobility. He has no stairs to enter. Dispensed FWW for home use. Pt and caregiver feel safe to return home. He will benefit from HHPt to improve functional strength and mobility. Goals Bed Mobility Goal Standby Assistance Transfer Goal Standby Assistance,Front Wheeled Walker Gait Goal Standby Assistance,Front Wheel Walker Gait Distance 150 Other Goals improve bed mobility, transfers using fWW and ambulation using FWW ~ 200 ft mod I Days to Meet Goals 10 Frequency of Treatment Frequency Of Treatment Twice a Day Treatment Plan Physical Therapy Treatment Plan Bed Mobility Training,Transfer Training,Gait Training, Therapeutic Exercise,Balance Retraining,Post Op Education, Discharge Planning,Hot or Cold Pack,Neuromuscular Re-ed, Coordination Retraining,Manual Therapy Precautions Posterior Hip Precautions No Hip Flexion > 90 degrees,No Hip Internal Rotation,No Hip Adduction Weight Bearing Status Weight Bearing Status Weight Bear as Tolerated Allowed Weight Bearing Amount (enter % RLE WBAT or #) (%) Recommendations To Nursing Amount of Assist Needed 1 Person Assist Discharge Recommendations PT Discharge Recommendations Home with 11/03 Assist Available,Home Health Equipment Needed for Home Before Dispnsed FWW Discharge Transportation Needs at Discharge Private Vehicle
--- NOTE | 2022-05-11 11:37 | CM.DPC ---
DCP Cont: DCP approached by PT this morning and states that pt would benefit from Home Health services. DCP discussed with pt and [facility] was agreed upon. Gillian @ [facility] contacted and made aware of referral. Gillian states that they can see pt as early as Saturday. Orders placed. Referral being sent to [facility]. Pt to discharge home today via spouse POV. Carolina Carrera RN/LARRYP
--- NOTE | 2022-05-11 11:45 | PM.DS.1 ---
History of Present Illness History of Present Illness Date Patient Seen: 05/11/22 Time Patient Seen: 07:40 Chief complaint: OPB Narrative: Patient is complaining about moderate right hip pain. He is also currently on O2 as his sats drop during the evening/night. He is working with PT/OT. He is planning on going home today with his friend to take care of him. He denies any new numbness or tingling. Discharge Providers Provider Date of admission: 05/11/22 11:15 Discharge Date: 05/11/22 Primary care physician: Zoya Hammonds PA-C Consults: 05/09/22 06:00 Consult to Anesthesiology Routine Comment: Consulting Provider: Anesthesiologist Reason for consultation: Regional block for post operative pain control 05/09/22 15:22 Consult to Discharge Planning Routine Comment: Consult to Physical Therapy Evaluate & Treat Comment: Physician Instructions: post op AUGIE protocol Consult to Respiratory Therapy Evaluate & Treat Comment: Physician Instructions: Evaluate and treat 05/10/22 12:49 Consult to Home Health Routine Comment: RTHA Reason For Exam: Set up FWW for home use Discharge provider: Lexii Abraham PA-C Summary Hospital Course Discharge Diagnosis: -right hip OA Hospital Course: Operative Date/Time/Diagnoses Date of procedure: 05/09/22 Time of procedure: 11:30 Procedure & Clinicians Procedure: Right total hip arthroplasty posterior approach Same procedure as scheduled: Yes Indications: The patient has had progressively worsening right hip pain with radiographic changes consistent with arthritis. Non-operative management has failed and the patient has requested total hip replacement. The risks, benefits and alternatives to surgery were discussed with the patient prior to proceeding. Risks discussed included, but were not limited to, failure to relieve pain, leg length discrepancy, dislocation, stiffness, infection, nerve damage, deep venous thrombosis, pulmonary embolism, stroke, coma, heart attack, permanent paralysis and , as well as the potential need for eventual revision of the prosthetic. Surgeon: Valentina Allen Senior Technical Analyst: Bassam Montelongo Anesthesia Type: General and Spinal Operative Notes Findings: Severe right hip osteoarthritis, acceptable stability, acceptable bone Closure Type: primary Specimen(s): none sent Prosthetic devices, grafts, tissues, transplants, or devices: Allen [employer] nephew anthology size 8 standard offset, 56 mm R3 cup, 36 x -3 cobalt chrome head, neutral poly liner, one 6.5 mm screw Applied: drain(s) Estimated Blood Loss (mL): 250 Blood products transfused: none Status at Discharge Cognitive/behavioral status at discharge: at baseline, oriented Functional status at discharge: uses cane/walker Overall status at discharge: patient is progressing back to baseline Exam Vital Signs (past 8 hours): - 05/11/22 07:14 05/11/22 08:26 Temperature 97.3 F L Pulse Rate 73 Respiratory Rate 18 Blood Pressure 103/65 Pulse Oximetry 97 96 Oxygen Delivery Method Nasal Cannula Oxygen Flow Rate 2 Oxygen Delivery Method Nasal Cannula Oxygen Flow Rate 2 Narrative Exam Narrative: Pleasant 67-year-old male, resting comfortably in bed, no acute distress. Rosmery dressing is on and there are few scant areas of serosanguineous drainage, otherwise clean, dry, intact. There is no surrounding erythema or induration. Bilateral lower extremity: Motor functions are grossly intact, sensation is grossly intact to light touch, calves are soft and nontender to palpation. Objective Labs Result Diagrams: 05/10/22 06:32 COUNTS INCLUDE 234 BEDS AT THE [facility] Medical History Dry skin Enlarged prostate Glaucoma HTN (hypertension) Neuropathy Osteoarthritis Suspected sleep apnea Surgical History History of urologic surgery (~1994) S/P gastroplasty (~1986) Social History household members: none Smoking Status: Current every day smoker alcohol intake: former Discharge Assessment & Plan Assessment and Plan Assessment: -stable status post right total hip arthroplasty, posterior approach -low O2 stats at night Plan of Treatment: -mobilize with PT. Maintain posterior hip precautions x6 weeks. Weightbearing as tolerated with front wheel walker -continue multimodal pain management -aspirin 81 mg twice daily x6 weeks for DVT prophylaxis -patient follow-up with his primary care in regards to his low O2 stats at night, possible concern cali for sleep apnea -DC home today once cleared by PT Discharge Plan Discharge Plan Patient Disposition: Home Discharge orders & Medications Prescriptions: New oxycodone 5 mg Tablet See Rx Instructions .ROUTE .COMPLEX PRN (Reason: Pain, Moderate (4-6)) Qty: 42 0RF Rx Instructions: Take 1-2 tablets by mouth every 4 hours as needed for moderate to severe postop pain acetaminophen 500 mg capsule 500 mg PO Q4H MDD Max 3000 mg per day PRN (Reason: fever or pain) Qty: 90 0RF polyethylene glycol 3350 17 gram Powder In Packet 17 g PO BID Qty: 30 0RF aspirin 81 mg Tablet,Delayed Release (Dr/Ec) 81 mg PO BID 42 Days Qty: 84 0RF Rx Instructions: X6 weeks to prevent blood clots docusate sodium 100 mg Capsule 100 mg PO BID PRN (Reason: Constipation from narcotic pain meds) Qty: 30 0RF Continued travoprost 0.004 % Drops 1 drp EYE-BOTH BEDTIME amlodipine 5 mg Tablet 5 mg PO DAILY naproxen sodium 220 mg Tablet 220 mg PO BID PRN (Reason: Pain) triamterene-hydrochlorothiazid [Maxzide-25mg] 37.5-25 mg Tablet 1 tab PO QAM Follow up/Referrals: Valentina Allen MD [Physician] - (10-14 days for postoperative visit) Zoya Hammonds PA-C [Primary Care Provider] - (Please follow-up with your PCP regarding low oxygen saturation levels at night. There is concern for possible sleep apnea) Diet/Activity/Treatments Diet: Diet as Tolerated Other treatments: Dressing/Wound care: -Keep Rosmery dressing in place until postoperative follow-up office visit. The Rosmery battery/pump should last for 7 days from surgery. Once the pump stops, please cut off hose at base of dressing and cover with a bandaid/part of a dressing from Rosmery package. The monitor can be thrown away and recycle the batteries. Leave the remaining dressing in place. -Rosmery info: The Rosmery dressing provides suction known as negative pressure wound therapy, which draws out excess fluid from the wound and protects the incision. It also helps to prevent bacteria from entering the wound or incision. -Okay to shower. Keep wound out of direct water stream. No soaking or submerging until all the scabs fall off (approximately 6 weeks). -No lotions, ointments, or scar creams directly to the incision until the wound is healed (4-6 weeks), -Please call the office if dressing becomes wet, soiled, or saturated. Activities: -Maintain posterior hip precautions x6 weeks. -Weight-bearing as tolerated. Use front wheeled walker, and progress to cane when safe. -Continue with home exercises as directed by your physical therapist. -Elevate ?toes above the nose if you have significant swelling in your lower leg. (A wedge pillow is easiest.) -Ice your incision as needed for pain/inflammation/swelling. Protect your skin with a folded pillowcase. Follow-up: -Follow-up with your surgeon or PA in the office in 10-14 days after surgery. -Follow-up with your surgeon 6 weeks postoperatively. Call the office if you have chest pain, shortness of breath, significant swelling that will not resolve with elevating, fever over 101?, significantly worsening pain, or are concerned you might need to go to the Emergency Room. [facility]: [phone] Skin/Wound/Dressing Care Report to your healthcare provider any signs of infection, such as:: chills, fever, night sweats, unusual drainage and unusual redness Visit Report/Discharge Packet Instructions: DI for Hip Replacement Stand Alone Forms: Surgery Discharge Discharge Data Primary Care Provider: Zoya Hammonds Attending Provider: Valentina Allen
[2022-05-11 12:10] VITALS: BP 113/71; PULSE 78; RESP 18; TEMP 36.6; O2SAT 95
[2022-05-11] MEDS: BISACODYL 10 MG SUPP PR (13:22)
== END 2022-05-11 14:30 | disposition home or self-care (01) ==
LOC: OR 11:25 → AC 11:25
PROVIDERS: Admitting Provider Orthopaedic Surgery; PCP Physician Assistant; Referring Provider Orthopaedic Surgery; Visit Provider Orthopaedic Surgery
PROC: 0SR90JZ Replacement of Right Hip Joint with Synthetic Substitute, Open Approach (ICD-10-PCS; CPT 27130; principal; 2022-05-09 12:00)
DX: M16.11 Unilateral primary osteoarthritis, right hip (principal); F17.210 Nicotine dependence, cigarettes, uncomplicated; I95.1 Orthostatic hypotension
CPT/HCPCS: 27130; 36415; 73502; 85014; 85018; 97110; 97116; 97162; 97530; C1776; G0378; C9290; J0171; J0690; J1100; J2250; J2405; J2704; J2765; J3010; J7613

== ENCOUNTER → 2022-08-16 13:59 | Outpatient (CLI) | payer MEDICARE, OTHER, SELFPAY ==
[2022-05-09 10:10] VITALS: BMI 42.0
--- NOTE | 2022-08-16 | DI.US.S_ITS ---
PROCEDURE: US ABD AORTA ANEURYSM SCREEN INDICATIONS: Screening for cardiovascular disorder TECHNIQUE: Real time scanning was performed of the aorta and iliac arteries, with image documentation. COMPARISON: None. FINDINGS: Aorta: The proximal and mid aorta are not seen, secondary to overlying bowel gas. Distal aortic diameter is 2.4 cm. Iliac arteries: Right common iliac artery measures 1.6 cm. Left common iliac artery measures 1.3 cm. This study is limited by body habitus. IMPRESSION: Limited study demonstrating no aneurysm. Please note that the proximal and mid aorta are not seen. Dictated by: Reese Fenton M.D. on 08/16/2022 at 13:41 Approved by: Reese Fenton M.D. on 08/16/2022 at 13:41
== END ==
PROVIDERS: PCP Physician Assistant; Referring Provider Physician Assistant; Visit Provider Physician Assistant
DX: Z13.6 Encounter for screening for cardiovascular disorders (principal)
CPT/HCPCS: 76706

== ENCOUNTER → 2022-11-28 13:53 | Outpatient (CLI) | payer MEDICARE, OTHER, SELFPAY ==
[2022-05-09 10:10] VITALS: BMI 42.0
--- NOTE | 2022-11-28 | DI.MRI.S_ITS ---
PROCEDURE: MR LUMBAR SPINE WO CON INDICATIONS: LUMBAR PAIN TECHNIQUE: Noncontrast sagittal T1 spin echo and T2 fast echo, sagittal STIR, and T2 fast spin echo through the lumbar spine. In cases with scoliosis, additional coronal T2 fast spin echo may be performed. COMPARISON: [facility] [place], CR, XR LUMBAR SPINE 2 OR 3 VIEWS, 11/16/2022, 16:07. FINDINGS: Image quality: Excellent. Alignment and Curvature: 8 mm degenerative anterolisthesis of L4 on L5. Bone Marrow: Marrow is of normal overall signal. No acute vertebral body compression fractures. Spinal Cord: Conus medullaris terminates at the L1 level. Visualized cord demonstrates normal signal and size. Paraspinous Soft Tissues: No paravertebral masses. T12-L1: Facet hypertrophy. No canal stenosis or foraminal stenosis. L1-L2: Disc bulge. Facet hypertrophy. No canal stenosis or foraminal stenosis. L2-L3: Disc bulge. Facet hypertrophy. No canal stenosis or foraminal stenosis. L3-L4: Disc bulge. Prominent facet hypertrophy. Epidural lipomatosis. Mild canal stenosis. Omod-ai-orfclnyv bilateral foraminal narrowing. L4-L5: Anterolisthesis of L4 on L5. Posterior disc bulge. Exuberant facet and ligament hypertrophy. High-grade canal stenosis. Moderate bilateral foraminal narrowing with flattening deformity on the exiting bilateral L4 nerve roots. L5-S1: Quite prominent bilateral facet hypertrophy. No canal stenosis. Bilateral moderate to severe foraminal narrowing with mild bilateral L5 foraminal nerve root impingement. IMPRESSION: 1. Patient has underlying multilevel facet arthropathy, quite prominent at L4-L5 and L5-S1. 2. At L4-L5, there is high-grade canal stenosis and moderate bilateral foraminal stenosis. 3. At L5-S1, there is bilateral moderate to severe foraminal narrowing. 4. Mild canal stenosis at L3-L4. Dictated by: Ezekiel Perez M.D. on 11/28/2022 at 15:48 Approved by: Ezekiel Perez M.D. on 11/28/2022 at 15:53
== END ==
PROVIDERS: PCP Physician Assistant; Referring Provider Orthopaedic Surgery; Visit Provider Orthopaedic Surgery
DX: M47.816 Spondylosis without myelopathy or radiculopathy, lumbar region (principal); M47.817 Spondylosis without myelopathy or radiculopathy, lumbosacral region; M48.061 Spinal stenosis, lumbar region without neurogenic claudication; M48.07 Spinal stenosis, lumbosacral region; M54.50 Low back pain, unspecified
CPT/HCPCS: 72148

== ENCOUNTER → 2023-06-12 11:50 | Outpatient (CLI) | payer MEDICARE, OTHER, SELFPAY ==
[2022-05-09 10:10] VITALS: BMI 42.0
--- NOTE | 2023-06-12 11:53 | DI.CT.S_ITS ---
PROCEDURE: CT SINUS SCREEN WO CON INDICATIONS: CHRONIC PANSINUISITIS TECHNIQUE: Noncontrast 3.0 mm axial images acquired from the frontal sinuses to the mid-sella, with coronal and sagittal reformats. For radiation dose reduction, the following was used: automated exposure control, adjustment of mA and/or kV according to patient size. COMPARISON: None. FINDINGS: Image quality: Excellent. Maxillary Sinuses: Moderate mucosal thickening is seen within the left maxillary sinus, with mild mucosal thickening within the right maxillary sinus. The superior medial mackenzie of the maxillary sinuses are demineralized. Ethmoid Air Cells: Scattered [id number] areas of mucosal thickening can be seen within the ethmoid air cells. There is demineralization of the ethmoid air cell bony septations. Sphenoid Sinuses: No bony remodeling or destruction. Moderate mucosal thickening is seen within the sphenoid sinuses. Frontal Sinuses: No bony remodeling or destruction. Sinuses are clear. Ostiomeatal Complexes: Ostiomeatal complexes are patent, yet they are constitutionally narrowed. No Jody cells. There is an apparent mucous retention cyst seen near the opening of the right ostiomeatal complex, as on series 4, image 22. The ostiomeatal complexes are demineralized. Miscellaneous: Visualized intra-orbital contents are normal. No porsche bullosa or paradoxical turbinate curvature. There is mild rightward nasal septal deviation. IMPRESSION: Multifocal paranasal sinus disease is seen, which is worst involving the left maxillary sinus. Narrowed ostiomeatal complexes. Areas of bony demineralization are seen, which are consistent with chronic sinusitis. There is mild rightward nasal septal deviation. Dictated by: Reese Fenton M.D. on 06/12/2023 at 11:38 Approved by: Reese Fenton M.D. on 06/12/2023 at 11:41
== END ==
PROVIDERS: PCP Physician Assistant; Referring Provider Physician Assistant; Visit Provider Physician Assistant
DX: J32.4 Chronic pansinusitis (principal); J34.2 Deviated nasal septum
CPT/HCPCS: 70486

== ENCOUNTER → 2023-06-27 12:29 | Outpatient (CLI) | payer MEDICARE, OTHER, SELFPAY ==
[2022-05-09 10:10] VITALS: BMI 42.0
[2023-06-27 13:45] LABS: Add Manual Diff / Slide Review NO; Basophils Absolute Auto 100 /uL (0-100); Eosinophils Absolute Auto 200 /uL (0-450); Hematocrit 45.3 % (41-53); Hemoglobin 15.4 g/dL (13.5-17.5); Lymphocytes Absolute Auto 1600 /uL (1100-4500); Lymphocytes Percent Auto 20.8 % (25-40); Mean Corpuscular HGB Conc 33.9 % (30-36); Mean Corpuscular Hemoglobin 32.1 PG (26-34); Mean Corpuscular Volume 94.8 fL (80-100); Monocytes Absolute Auto 600 /uL (0-900); Monocytes Percent Auto 8.4 % (3-14); Neutrophils Absolute Auto 5000 /uL (1500-7000); Neutrophils Percent Auto 66.8 % (50-75); Platelet Count 229 X10^3/uL (150-400); Red Blood Cell Count 4.78 X10^6/uL (4.5-5.9); Red Cell Distribution Width 14.3 % (11.6-14.8); White Blood Cell Count 7.5 X10^3/uL (4.5-11.0)
[2023-06-27 14:01] LABS: BUN Creatinine Ratio 15.5 (6-22); Blood Urea Nitrogen 18 mg/dL (9-20); Calcium 9.5 mg/dL (8.4-10.2); Carbon Dioxide 30 mmol/L (22-32); Chloride 100 mmol/L (98-107); Estimated Glomerular Filt Rate > 60 mL/min (>60); Glucose 89 mg/dL (80-110); HEMOLYSIS < 15 (0-50); Hemoglobin A1C% w Est Avg Glu 6.2 % (4.0-6.0); Potassium 4.3 mmol/L (3.4-5.1); Sodium 135 mmol/L (137-145)
== END ==
PROVIDERS: PCP Physician Assistant; Referring Provider Orthopaedic Surgery Orthopaedic Surgery of the Spine; Visit Provider Orthopaedic Surgery Orthopaedic Surgery of the Spine
DX: Z01.818 Encounter for other preprocedural examination (principal); R73.9 Hyperglycemia, unspecified; Z01.812 Encounter for preprocedural laboratory examination
CPT/HCPCS: 36415; 80048; 83036; 85025; 93005

== ENCOUNTER → 2023-07-07 09:52 | Outpatient (CLI) | payer MEDICARE, OTHER, SELFPAY ==
[2022-05-09 10:10] VITALS: BMI 42.0
--- NOTE | 2023-07-07 10:18 | DI.CT.S_ITS ---
PROCEDURE: CT LUMBAR SPINE WO CON INDICATIONS: LUMBAR STENOSIS WITH NEUOGENIC CLAUDICATION TECHNIQUE: Noncontrast 3 mm thick sections acquired from the T12 level to the sacrum. Sagittal and coronal reformats were constructed. For radiation dose reduction, the following was used: automated exposure control. COMPARISON: [facility] [place], CR, XR LUMBAR SPINE 2 OR 3 VIEWS, 01/16/2023, 9:05. FINDINGS: Image quality: Excellent. Bones: There is grade 1 anterolisthesis of L4 on L5 which is similar to prior. Mild straightening of the lumbar lordosis minimal levocurvature of the lumbar spine. Multilevel degenerative changes the lumbar spine with disc height loss, degenerative endplate changes and spurring. Facet arthropathy, most pronounced in the lower lumbar spine. Vacuum disc phenomenon L4-5. Multilevel central canal stenosis, severe at L4-L5 and at least moderate to severe at L3-L4. Multilevel osseous neural foraminal stenosis, most severe at L4-5 bilaterally. Diffusely decreased osseous mineralization. No acute vertebral body compression fractures. No suspicious lytic or blastic bony lesions. No pars defects. Soft tissues: No retroperitoneal masses or hematomas. Visualized aorta is normal in caliber. Atherosclerotic vascular calcifications. Partially visualized gastric sutures. Hypodensity within the right hepatic lobe, favored to represent a simple cyst. IMPRESSION: Multilevel degenerative changes of the lumbar spine as described above. There is severe central canal stenosis and probable severe bilateral neural foraminal stenosis at L4-5 with grade 1 anterolisthesis. Dictated by: Yasmani Elizabeth M.D. on 07/07/2023 at 13:03 Approved by: Yasmani Elizabeth M.D. on 07/07/2023 at 13:08
== END ==
PROVIDERS: PCP Physician Assistant; Referring Provider Orthopaedic Surgery Orthopaedic Surgery of the Spine; Visit Provider Orthopaedic Surgery Orthopaedic Surgery of the Spine
DX: M48.062 Spinal stenosis, lumbar region with neurogenic claudication (principal); M47.816 Spondylosis without myelopathy or radiculopathy, lumbar region; M43.16 Spondylolisthesis, lumbar region
CPT/HCPCS: 72131

== ENCOUNTER 2023-07-29 06:48 | Inpatient (IN) | payer MEDICARE, OTHER, SELFPAY ==
[2022-05-09 10:10] VITALS: BMI 42.0
[2023-07-18 10:00] VITALS: BMI 38.9
[2023-07-29] VITALS (14 sets, daily range): BP systolic 98–138; BP diastolic 56–92; PULSE 74–99; RESP 9–25; TEMP 36.3–36.6; O2SAT 88–98; BMI 38.9
--- NOTE | 2023-07-29 06:50 | SUR.PREOP ---
pt. arrived 25 min late
--- NOTE | 2023-07-29 07:26 | SUR.OPER ---
Prone on spine table, head in foam head support, padded chest and pelvic supports, gel pad at knees, lower legs supported by pillows; nipples, genitalia and toes free of pressure, arms secured on foam padded arm boards at <90 degrees abduction. Tape over blanket at thigh secured to table.
[2023-07-29] MEDS: LACTATED RINGERS 1,000 ML 42 ML IV ×2 (07:30→09:00)
[2023-07-29] MEDS: ACETAMINOPHEN 325 MG TABLET 975 MG PO (07:30)
[2023-07-29] MEDS: GABAPENTIN 300 MG CAPSULE PO ×2 (07:30)
[2023-07-29] MEDS: ALBUTEROL/IPRATROPIUM 3 ML AMPUL INH (07:33)
--- NOTE | 2023-07-29 07:35 | PM.PREOP ---
Pre-operative Note Interval Note History & Physical reviewed/Exam performed by Physician: Yes Changes to H&P: No
[2023-07-29] MEDS: CEFAZOLIN VIAL 1 GM in SODIUM CHLORIDE 0.9% 100 ML IV (07:55)
[2023-07-29] MEDS: CEFAZOLIN 2 GM/100 ML PREMIX 100 ML IV (07:55)
[2023-07-29] MEDS: BUPIVACAINE 0.25% (PF) 60 ML, EPINEPHrine 0.15 MG INJ (08:34)
[2023-07-29] MEDS: BUPIVACAINE LIPOSOME 266 MG/20 ML VIAL INJ (08:34)
--- NOTE | 2023-07-29 11:00 | DI.RAD.S_ITS ---
PROCEDURE: XR LUMBAR SPINE 2-3V INDICATIONS: L4-5 TLIF TECHNIQUE: 2 intraoperative fluoroscopic images of the lumbar spine COMPARISON: None. FINDINGS: 2 intraoperative fluoroscopic images of L4-5 posterior fusion hardware with bipedicular screws and interbody disc spacer. Please see operative report for details. Scattered rounded hyperdensities are presumably external to the patient. IMPRESSION: 2 intraoperative fluoroscopic images of L4-5 posterior fusion hardware with bipedicular screws and interbody disc spacer. Please see operative report for details. Dictated by: Kalli Bender M.D. on 07/29/2023 at 16:30 Approved by: Kalli Bender M.D. on 07/29/2023 at 16:32
--- NOTE | 2023-07-29 11:21 | PM.OP.1 ---
Operative Date/Time/Diagnoses Date of procedure: 07/29/23 Time of procedure: 07:40 Pre-op diagnosis: 1. L4-5 spondylolisthesis 2. L4-5 spinal stenosis with neurogenic claudication Post-op diagnosis: same Procedure & Clinicians Procedure: 1. L4-5 Postero-lateral and posterior interbody fusion 2. L4-5 interbody cage placement. 3. L4-5 decompressive laminectomy with bilateral facetecomies 4. L4-5 Posterior non-segmental instrumentation 5. [place] of bone marrow from iliac crest 6. Utilization of microsurgical technique and operating microscope 7. Utilization of robotic assisted navigation Same procedure as scheduled: Yes Indications: Patient has been having chronic back pain and worsening lumbar radiculopathy and symptoms of neurogenic claudication. Patient failed multiple conservative management with worsening pain weakness and numbness in his lower extremity. His MRI shows significant L4-5 spondylolisthesis and severe spinal stenosis correlating with his symptoms. Patient has been having difficulty performing activity of daily living. After discussing risks benefits of treatment options, patient elected proceed with surgery. Surgeon: Margret Lakhani Gift Officer: Criselda Boucher Click Yes if Unassisted: No Anesthesia Type: General Operative Notes Closure Type: primary Specimen(s): none sent Prosthetic devices, grafts, tissues, transplants, or devices: Globus CREO MIS screws, Rise cage Estimated Blood Loss (mL): 50 Blood products transfused: none Procedure in detail: Patient was seen in the preoperative area. Risks and benefits of the surgery was discussed with the patient. Informed consent was obtained from the patient and placed in the chart. Surgical site was marked. Patient was taken to the operative room. General anesthesia was administered. Prophylactic antibiotic was given to the patient less than 30 min before the incision was made. Patient was placed into a prone position on the Alex table. Patient's back was then prepped and draped in the sterile fashion. Time-out was performed at this time. After patient was prepped and draped, patient's PSIS was palpated and marked bilaterally. Small 1 cm incision was made over the PSIS for placement of the reference probes. Two trocar was placed into the PSIS 1 on each side. The reference probe was attached to the trocar of the reference apparatus. At this time the C-arm imaging was used to confirm AP and lateral of L4-5 vertebrae and merged the C-arm imaging using the [employer] robotic navigation system with the CT of the lumbar spine. After successful merging was completed and confirmed, skin marker was used to иван out the skin incision using the [employer] robotic arm. Bilateral incision was made at this time. Pre templated trajectory was used and guided using the [employer] robotic navigation system for bilateral L4, L5 pedicle screw placement. This was done by using the robotic arm to guide the high-speed bur to make a cortical entry point. Next a drill was placed also using the robotic arm and guided using the navigation system drilling partially through bilateral L4, L5 pedicles. Next L4 and L5 pedicle screws it was pre templated and measured was placed onto the power driver license examiner and inserted into the pedicles bilaterally. After all 4 screws were placed C-arm imaging was taken of both AP and lateral to confirm the placement. Excellent placement of the screws were confirmed and a matched precisely with the pre planned screw placement using the navigation system. MARs retractor was inserted using [employer] guidence. Globus MARS retractors was placed inside the incision and docked onto the L4 lamina. Using microsurgical technique and operating microscope, a L4 laminectomy and L4-5 facetectomy was performed using a [place] rongeur. Patient was found have severe lateral recess and neural foramen stenosis which was fully decompressed after the laminectomy facetectomy. The laminectomy and facetectomy was performed in order to decompress patient's cauda equina as well as the nerve roots exiting at the L4-5 level. More than 75% of the facets were removed during the process of decompression rendering L4-5 level grossly unstable and required a fusion procedure at the same time. The disc space at L4-5 was identified, and a total diskectomy was performed at L4-5 level. The endplates were decorticated using a rasp and shaver. The total diskectomy and decortication was performed at L4-5 level in order to to accomplish a L4-5 fusion. The local bone from the laminectomy and facetectomy was saved for local bone grafting. After the total diskectomy and decortication was completed, DBM bone graft material was combined with local bone that was harvested earlier. At this time, a separate skin is incision was made over the iliac crest. A Jamshidi needle was inserted into the iliac crest through a separate skin incision. 5 cc of bone marrow aspiration was obtained through the separate skin incision using a Jamshidi needle from the iliac crest. The bone marrow aspiration was combined with local bone and the DBM bone grafting material. The bone grafting material was placed into the L4-5 interbody space along with a expandable cage. The cage was expanded to its maximum height using the torque limiting screwdriver. The disc preparation as well as the cage insertion were also performed under navigation guidance. After the cage was placed, AP and lateral C-arm imaging was taken to confirm placement of the cage and excellent position was confirmed. Globus MARS retractor was inserted and docked onto the L4-5 posterolateral gutter on the right side. Using the power drill, posterior-lateral decortication was performed at L4-5 level until bleeding cortical bone was identified. The remaining bone grafting material was placed into the L4-5 posterior lateral gutter he order to accomplish posterolateral fusion at the L4-5 level. At this time the tulips were attached to the L4-5 pedicle screw shanks. After measuring the length of the rods, they were inserted into the tulips of the pedicle screws and locked in place using locking caps and torque limiting screwdriver bilaterally. Total 4 caps and 2 titanium rods was used in order to complete the posterior instrumentation construct. During the cap insertion the spondylolisthesis was appropriately reduced and maintained in the position after reduction. After all the hardware was placed, and confirmed with AP and lateral C-arm imaging, the wound was then irrigated with sterile normal saline and packed with Ray-Shaq gauze for 3 min to accomplish hemostasis. After the gauze was removed the deep fascia was closed with #1 Vicryl suture. The subcutaneous layer was closed with 2-0 Vicryl. The skin was closed with skin mervin. Patient tolerated the procedure well. There were no complications. Neuro monitoring system was used to monitor patient's neurologic status throughout entire procedure. There was no disturbance of the neural monitoring signals throughout the case. The Operation could not have been safely performed without compromising the technical result or length of the procedure, without the assistance of a skilled surgical physician assistant. The surgical physician assistant was medically necessary for proper positioning, retraction and manipulation of instruments, proper exposure, surgical preparation, and manipulation of tissue. Complications: none Post-operative Condition: stable Disposition: PACU Plan for aftercare: Admit to inpatient hospital
[2023-07-29] MEDS: ALBUTEROL 2.5 MG/3 ML NEB (ADULT) INH (11:49)
--- NOTE | 2023-07-29 11:53 | SUR.PHASEI ---
Intermittent oral suction, clear/white mucous suctioned.
[2023-07-29] MEDS: HYDROMORPHONE 1 MG INJ IV ×2 (11:56→12:04)
[2023-07-29] MEDS: OXYCODONE IR 5 MG TABLET PO ×2 (12:00→12:21)
[2023-07-29] MEDS: hydrOXYzine pamoate 25 MG CAPSULE PO ×2 (12:25→23:09)
--- NOTE | 2023-07-29 12:30 | SUR.PHASEI ---
Report called to
--- NOTE | 2023-07-29 12:46 | SUR.PHASEI ---
Patient transferred to the floor with belongings bag and cane. Report given to Florentin. VS stable. Dressing checked with RN.
[2023-07-29] MEDS: LACTATED RINGERS 1,000 ML 125 ML IV ×2 (13:03→23:02)
[2023-07-29] MEDS: ACETAMINOPHEN 325 MG TABLET 650 MG PO (14:19)
[2023-07-29] MEDS: OXYCODONE IR 10 MG TABLET PO ×2 (14:19→18:10)
[2023-07-29] MEDS: HYDROMORPHONE 0.5 MG INJ IV ×2 (15:05→20:46)
[2023-07-29] MEDS: CEFAZOLIN VIAL 3 GM in SODIUM CHLORIDE 0.9% 100 ML IV (15:06)
--- NOTE | 2023-07-29 15:45 | PT-IP ANOTE ---
PT checks on pt day of surgery and he is sleeping soundly this afternoon after arriving to floor. Will initiate evaluation efforts again next date.
[2023-07-29] MEDS: polyethylene glycoL 3350 17 GM POWD.PACK PO (20:46)
[2023-07-29] MEDS: DOCUSATE 100 MG CAPSULE PO (20:46)
[2023-07-29] MEDS: SENNOSIDES 8.6 MG TABLET 17.2 MG PO (20:46)
[2023-07-29] MEDS: LATANOPROST 0.005% OPHTH 2.5 ML 1 DROPS EYE-BOTH (20:46)
[2023-07-30] MEDS: ACETAMINOPHEN 325 MG TABLET 650 MG PO ×3 (00:25→17:24)
[2023-07-30] MEDS: OXYCODONE IR 10 MG TABLET PO ×6 (00:26→20:36)
[2023-07-30] MEDS: CEFAZOLIN VIAL 3 GM in SODIUM CHLORIDE 0.9% 100 ML IV (00:28)
[2023-07-30 01:52] VITALS: BP 89/49; PULSE 79; RESP 20; TEMP 36.3; O2SAT 97
[2023-07-30 02:34] VITALS: BP 96/63
[2023-07-30 06:50] VITALS: BP 100/63; PULSE 73; RESP 19; TEMP 36.6; O2SAT 94
[2023-07-30] MEDS: polyethylene glycoL 3350 17 GM POWD.PACK PO ×2 (07:53→20:35)
[2023-07-30] MEDS: DOCUSATE 100 MG CAPSULE PO ×2 (07:53→20:36)
[2023-07-30] MEDS: hydrOXYzine pamoate 25 MG CAPSULE PO ×3 (07:53→17:24)
[2023-07-30] MEDS: TAMSULOSIN 0.4 MG CAPSULE 0.8 MG PO (10:12)
--- NOTE | 2023-07-30 10:39 | P.PN_ITS ---
Subjective Subjective Date Patient Seen: 07/30/23 Time Patient Seen: 10:41 Interval history: Devyn is a 68 year old male who is POD #1 after having a L4-5 Postero-lateral and posterior interbody fusion with cage placement, decompressive laminectomy with bilateral facetecomies done by Dr. Lakhani. Patient reports pain 9/10, taking both PO Oxycdone and IV Dilaudid. Using a bedside urinal, not able to ambulate to bathroom or around his room on his own yet, can get to the bathroom with assistance however. Lives alone at home in [place] but has a friend who is willing to stay with him for a few days to provide assistance with ADLs after he comes home from the hospital. Has not been had PT evaluation yet today. Review of vitals show low/normal BP readings this morning, has not been given his amlodipine due to this. Denies fever, chills, nausea. Exam Vital Signs (past 8 hours): - 07/30/23 06:50 Temperature 98 F Pulse Rate 73 Respiratory Rate 19 Blood Pressure 100/63 Pulse Oximetry 94 Oxygen Flow Rate 0 Oxygen Delivery Method Nasal Cannula Oxygen Flow Rate 0 Const General: cooperative, healthy appearing and comfortable (Sitting comfortably in the room) Resp Effort & Inspection: normal respiratory effort and able to speak in complete sentences Cardio Rate: regular rate Extrem Other: moves all extremities equally, extremities appear well perfused. 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 Postoperative plan narrative: Work with PT for mobilization, limit bending, twisting and lifting. Multi-modal pain management, dc IV hydromorphone. Held BP med for now d/t hypotension, continue to monitor BP. Likely d/c home tomorrow if medically stable.
--- NOTE | 2023-07-30 11:51 | PT.IIE ---
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) History of urologic surgery (~1994) Hx of prostate biopsy (~2022) S/P gastroplasty (~1986) Medical History (Last Updated 07/18/23 @ 10:04 by Katherine Dodson RN) Dry skin Enlarged prostate Glaucoma HTN (hypertension) Neuropathy DEANA (obstructive sleep apnea) Osteoarthritis Physical Therapy Inpatient Evaluation/Re-Eval M1 PT/OT-IP Prior Functional Status Start: 07/29/23 15:30 Freq: NEEDED Status: Active Protocol: Document 07/30/23 09:15 MB (Rec: 07/30/23 11:51 MB [id number]) Medical Review Prior Functional Status Medical History Reviewed Yes Diet/Fluid Consistency Regular Communication WNLs Mobility and Gait Mod I with rollator Activities of Daily Living and IADL's Pt had assistance with cleaning his condo twice a month Social History Household Members none Living Arrangements Apartment/Condo Number of Floors (Floors) One Floor Number of Stairs To Enter/Railing? No steps to enter Home Environment Walk in Shower Home Equipment Front Wheel Walker,Four Wheel Walker,Shower Seat with Backrest Employment Status Retired M2 PT-IP Current Condition Start: 07/29/23 15:30 Freq: NEEDED Status: Active Protocol: Document 07/30/23 09:15 MB (Rec: 07/30/23 11:51 MB [id number]) Physical Therapy Current Condition Current Condition Evaluation Date 07/30/23 Treatment Diagnosis L4-5 fusion M3 PT-IP Subjective Start: 07/29/23 15:30 Freq: NEEDED Status: Active Protocol: Document 07/30/23 09:15 MB (Rec: 07/30/23 11:51 MB [id number]) Subjective Physical Therapy Visit Type Type Initial Evaluation Visit Start Time 09:15 Visit Stop Time 09:36 Total Visit Minutes 21 Number of PROJECT MANAGEMENT CONSULTANT Visits 0 Physical Therapy Visit Comments Patient Comments I have pain like I'm being stabbed from behind. Patient Goals To return home tomorrow Therapy Pain Assessment Pain When Pain Assessed At Rest Pain Present Pain Present Pain Reported Location Back Intensity 8 Scale Used Numeric (0 - 10) Description Stabbing Pain Behaviors Facial Grimacing,Guarding Pain Management Techniques Modification of Treatment,Re- positioning,Timing of Activity with Medications M4 PT-IP Mobility and Gait Start: 07/29/23 15:30 Freq: NEEDED Status: Active Protocol: Document 07/30/23 09:15 MB (Rec: 07/30/23 11:51 MB [id number]) PT-Bed Mobility Assessment Rolling Type of Rolling Log Rolling,Roll to Right Level of Assist Standby Assistance,1 Person Assistance Supine to Sit Supine to Sit Standby Assistance,1 Person Assistance,Bedrails Scooting Scooting to Edge of Bed Standby Assistance PT-Transfer Assessment Sit to and From Stand Sit to and from Stand Contact Guard Assistance,1 Person Assistance,Use of Upper Extremities Equipment Transfer Assistive Device Bed Rail,Front Wheeled Walker Orthotic/Prosthetic Devices or Brace: No Transfers Transfer Destination Chair Transfer Technique Ambulation Transfer Ability Level of Assist Contact Guard Assistance,1 Person Assistance Comments Mobility Comments Cues to push up from the bed and pt places one hand on the bed and one hand on the walker Gait Assessment Gait Gait Assistance Required: Contact Guard Assist,1 Person Assist Distance (Feet) 10 Able to Maintain Weight Bearing Status Yes During Gait Assistive Devices Assistive Device Gait Belt,Front Wheeled Walker Orthotic/Prosthetic Devices or Brace: No Gait Deviations General Gait Pattern Antalgic,Decreased Stride Length,Step-to Gait,Wide Based Gait Factors Limiting Gait Function Factors Limiting Gait Function Decreased Activity Tolerance, Pain,Poor Balance Comments Gait Comments Pt gait is slow and cautious and he gait trains 10'x2 PT-Balance Assessment Sitting Balance and Reactions Static Sitting Balance Ability Fair Dynamic Sitting Balance Ability Fair Standing Balance and Reactions Static Standing Balance Ability Fair Dynamic Standing Balance Ability Fair Device Used RW M5 PT-IP Objective Assessments Start: 07/29/23 15:30 Freq: NEEDED Status: Active Protocol: Document 07/30/23 09:15 MB (Rec: 07/30/23 11:51 MB [id number]) Orientation Orientation/Cognition Level of Alertness Alert Orientation Name,Age,Birthday,Month,Date, Year,Day of Week,Place, Situation Language Function Ability No Deficits Noted Safety Awareness Understands Safety Issues Memory Description No Deficits Noted Gross Range of Motion Upper Extremity ROM Assessment Within Functional Limits Lower Extremity ROM Assessment Within Functional Limits Strength Upper Extremity Strength Assessment Within Functional Limits Lower Extremity Strength Assessment Within Functional Limits Sensation Assessment Sensation Gross Sensation WNL M6 PT-IP Treatment Start: 07/29/23 15:30 Freq: NEEDED Status: Active Protocol: Document 07/30/23 09:15 MB (Rec: 07/30/23 11:51 MB [id number]) Physical Therapy Treatment Education Education Provided Precautions,Post-Op Packet, Safety M7 PT-IP Assessment and Plan Start: 07/29/23 15:30 Freq: NEEDED Status: Active Protocol: Document 07/30/23 09:15 MB (Rec: 07/30/23 11:51 MB [id number]) PT Summary Assessment and Plan Potential Rehabilitation Potential Good Status of Condition at Evaluation Stable Summary Impairments Pain,Balance,Bed Mobility, Transfers,Gait,Activity Tolerance Progress Towards Goals Progressing Toward Goals Assessment Summary Pt is a gentleman reporting stabbing back pain after L4-5 fusion last date. He moves slowly and is receptive to back precaution and log rolling training as well as bed mobility, transfers and short gait. He will benefit from PT to improve functional mobility. Goals Bed Mobility Goal Independent Transfer Goal Independent,Front Wheeled Walker Gait Goal Independent,Front Wheel Walker Gait Distance 100 Other Goals Pt may advance to most appropriate LRAD Pt will recall 3/3 back precautions. Days to Meet Goals 3 Frequency of Treatment Frequency Of Treatment Twice a Day Treatment Plan Physical Therapy Treatment Plan Bed Mobility Training,Transfer Training,Gait Training, Therapeutic Exercise,Balance Retraining,Post Op Education, Discharge Planning,Hot or Cold Pack,Neuromuscular Re-ed Precautions Lumbar Precautions Log Roll,No Twisting,Limit Bending,Lifting Restriction of 10 lbs,Gait Belt above Incisional Area Weight Bearing Status Weight Bearing Status Weight Bear as Tolerated Recommendations To Nursing Amount of Assist Needed 1 Person Assist Discharge Recommendations PT Discharge Recommendations Home with Assistance,Home Health Transportation Needs at Discharge Private Vehicle
[2023-07-30] MEDS: NAPROXEN 250 MG TABLET PO (12:09)
[2023-07-30 14:00] VITALS: BP 106/59; PULSE 55; TEMP 36.3; O2SAT 93
[2023-07-30] MEDS: NICOTINE 7 MG PATCH TOP (14:00)
--- NOTE | 2023-07-30 15:58 | CM.DANOTE ---
Initial DCP Assessment Note Reviewed EMR and team rounds for pt's medical status and initial anticipated d/c needs. Met with pt at bedside to introduce self and role. Pt was found to be alert, oriented, stating that pain is well managed and he's comfortable at this time. Payor: Medicare Attending: Dr. Lakhani Pt is a 68 year-old M admitted for a planned lumbar fusion with Dr. Lakhani. Pt has been having worsening lower back pain and bilateral lower extremity pain with no relief from OP PT or use of NSAIDS. He shares that the pain was interfering with his ability to comfortably walk, stand, and has affected his overall functional abilities with daily ADL's. Surgery was completed on 07/29/23, pt is post-op day 1. He states that he does not want Home Health, and has already made arrangements with a friend to stay with him for the first few days after discharge, and she is experienced professionally as a PT in the community. This BALLAST INSPECTOR will plan to f/u with him again tomorrow prior to d/c to offer additional [place] outpatient PT options, per his requiest. DCP will continue to follow and monitor for care plan as it evolves. Discharge Planning/Care Management CM Discharge Assessment Start: 07/30/23 15:55 Freq: Status: Active Protocol: Document 07/30/23 15:55 DPL (Rec: 07/30/23 15:58 DPL [id number]) Discharge Planning Assessment Assigned Industrial Recruiter SCOOTER Layne Advance Directives? No Advance Directives on File No History Provided By Patient,Medical Record Expected Length of Stay 2 Has Patient been admitted in last 30 No days? Prior Living Arrangements Apartment/Condo Household Members none Type of transporation used prior to Drives own vehicle admit Independent with ADL's Yes Is patient alert and oriented? Yes Comment N/A Caregiver for Another No Community Services used prior to Physical Therapy admission: DME Already Rented / Owned FWW / Walker Patient/Family Preference OP PT Therapy Comment Pt states that he has a friend that does PT who will be staying with him for the first few days after returning home . This BALLAST INSPECTOR will f/u with him prior to d/c to provide additional OP PT resources in [place] for him to review for continued, longer-term tx. Barriers to Discharge No Discharge Plan Home Transportation Arrangement Friend is planning to stay at d/c and provide transport home Referrals Initiated None needed Whiteboard Updated in Patient Room with Yes name and ext. # of Industrial Recruiter Review Status In Process Please Provide Date Initial DC 07/30/23 Assessment Was Performed Pre-Anesthesia Assessment Start: 07/18/23 09:59 Freq: Status: Active Protocol: Document 07/18/23 10:00 CAB (Rec: 07/18/23 10:38 CAB [id number]) Pre-Anesthesia Assessment Preferred Name Devyn or Sisi Patient Information Reviewed Via Phone Assessment Assessment Completed With Patient Diagnostic Results BMP/CMP,CBC,EKG Comment Lab/EKG @ [facility] 06/27/23 Primary Care Provider Zoya Hammonds Seen Specialist in Last 12 Months Yes Specialist Seen Orthopedist,Urologist Primary Language Arabic Preferred Language Arabic Vocational Rehabilitation Consultant Required No Height 176.53 cm Weight 121.563 kg Body Mass Index (BMI) 38.9 Hearing Ability Normal Visual Assist Magnifying Glass Dentition Type Teeth, Natural Present,Teeth, Missing Other Aids No Comment Pt denies any difficulties Hx Anesthesia Reactions No: DEANA-unable to tolerate CPAP Hx Family Anesthesia Reaction No Hx Malignant Hyperthermia No Hx Blood Transfusions No Hx Blood Transfusion Reaction No: might have pt doesnt reccall Anesthesia Review Requested No Structural Engineer No alcohol intake former Smoking Status Current every day smoker Tobacco type cigarettes Substance Use Type marijuana Comment Edibles Pain Present Pain Reported Musculoskeletal Symptoms Abnormal Gait,Back Pain, Difficulty Walking,Joint Pain History of Falling (Recent or History of No ) Patient is completely paralyzed or No completely immobile Prosthesis or Orthotic Device Cane,Front Wheel Walker Mental Status Oriented to own ability Is patient on oxygen? No Does patient have WAYNE/SOB No Hx Sleep Apnea Yes CPAP/BIPAP use prescribed not used Suspected Sleep Apnea Yes: STOP BANG positive Can You Climb a Flight of Stairs Without No: Pt states r/t pain SOB Hx Chest Pain No Hx SOB No Hx Syncope or Dizziness No Anti-Coagulant Therapy No Has a Crew Director No Cardiac Testing No Hx Pacemaker/ICD No Pacemaker Rep Required? No Diet Type At Home Regular Dysphagia No Gastrointestinal Symptoms Constipation Bladder Pattern Frequency Urinary Catheter Present No Hx Urinary Self Catheterization No Diabetes No HgbA1C 6.2 Date 06/27/23 Hx Drug Resistant Organism No Presence of External or Internal Medical Yes: Right hip prosthesis Devices Received a COVID vaccine? Yes Received all doses? Yes Marital Status / Lives With none Current Living Arrangements Apartment/Condo Number of Floors (Floors) One Floor Support System Caregiver,Friend(s) Comment Caregiver will stay with pt to assist with care at DC Does the Patient Have Assistance After Yes Surgery Patient Discharge Plan Description Return Home Comment Pt advised same day to 2 day length of stay per surgeon Feels Safe in Current Environment Yes Been Physically Hurt or Threatened By a No Person in Current Environment Do you have thoughts of harming yourself None or others? Are you currently considering suicide? No Do you have a plan to hurt yourself or No Plan others? Do You Have Any Spiritual Beliefs That No May Affect Your HC Choices? Do You Have Any Cultural Practices That No May Affect Your HC Choices? Who Can We Speak to About Patient's Care Family, friends Identifying Code for Release of Patient Declines to issue Information Health Care Proxy/Next of Kin Hipolito (son) Health Care Proxy Emergency Contact Name Faith Morris (good friend) Emergency Contact Advance Directives? No Advance Directives on File No Power of Plastic Surgery Specialist No PAC Instructions Durable medical equipment, Medications to take/avoid, Nasal antibiotic,No ETOH/ petroleum product on skin DOS, NPO,Pre-surgical wash,Sensory aids,Sturdy shoes/comfortable clothes,Do not bring valuables and remove jewelry Stop Bang Assessment Do you snore loudly (louder than talking Yes or loud enough to be heard through closed doors) Do you have, or are you being treated Yes for, high blood pressure Is your BMI more than 35 kg/m2 Yes Age over 50 Yes Estimated neck circumference greater Unknown than 40cm or 16in Gender male Yes Result Positive
[2023-07-30 18:00] VITALS: BP 121/68; PULSE 76; RESP 12; TEMP 36.3; O2SAT 92
[2023-07-30 20:00] VITALS: BP 126/70; PULSE 72; RESP 16; TEMP 35.9; O2SAT 96
[2023-07-30] MEDS: SENNOSIDES 8.6 MG TABLET 17.2 MG PO (20:36)
[2023-07-30] MEDS: LATANOPROST 0.005% OPHTH 2.5 ML 1 DROPS EYE-BOTH (20:37)
[2023-07-31] VITALS: BP 109/62; PULSE 84; RESP 16; TEMP 36.3; O2SAT 94
[2023-07-31 04:00] VITALS: BP 112/66; PULSE 72; RESP 17; TEMP 36.6; O2SAT 96
[2023-07-31] MEDS: ACETAMINOPHEN 325 MG TABLET 650 MG PO (05:23)
[2023-07-31] MEDS: OXYCODONE IR 10 MG TABLET PO ×2 (05:23→08:51)
[2023-07-31] MEDS: hydrOXYzine pamoate 25 MG CAPSULE PO (05:24)
--- NOTE | 2023-07-31 06:51 | P.DS_ITS ---
History of Present Illness History of Present Illness Date Patient Seen: 07/31/23 Time Patient Seen: 06:51 Chief complaint: INPT Narrative: Operative Date/Time/Diagnoses Date of procedure: 07/29/23 Time of procedure: 07:40 Pre-op diagnosis: 1. L4-5 spondylolisthesis 2. L4-5 spinal stenosis with neurogenic claudication Post-op diagnosis: same Procedure & Clinicians Procedure: 1. L4-5 Postero-lateral and posterior interbody fusion 2. L4-5 interbody cage placement. 3. L4-5 decompressive laminectomy with bilateral facetecomies 4. L4-5 Posterior non-segmental instrumentation 5. [place] of bone marrow from iliac crest 6. Utilization of microsurgical technique and operating microscope 7. Utilization of robotic assisted navigation Same procedure as scheduled: Yes Indications: Patient has been having chronic back pain and worsening lumbar radiculopathy and symptoms of neurogenic claudication. Patient failed multiple conservative management with worsening pain weakness and numbness in his lower extremity. His MRI shows significant L4-5 spondylolisthesis and severe spinal stenosis correlating with his symptoms. Patient has been having difficulty performing activity of daily living. After discussing risks benefits of treatment options, patient elected proceed with surgery. Surgeon: Margret Lakhani Director Of Quantitative Research: Criselda Boucher Click Yes if Unassisted: No Anesthesia Type: General Operative Notes Closure Type: primary Specimen(s): none sent Prosthetic devices, grafts, tissues, transplants, or devices: Globus CREO MIS screws, Rise cage Estimated Blood Loss (mL): 50 Blood products transfused: none Discharge Providers Provider Date of admission: 07/29/23 06:48 Discharge Date: 07/31/23 Primary care physician: Zoya Hammonds PA-C Consults: 07/29/23 12:45 Consult to Occupational Therapy Evaluate & Treat Comment: Physician Instructions: Evaluate and treat Consult to Physical Therapy Evaluate & Treat Comment: Physician Instructions: Evaluate and Treat Discharge provider: Criselda Boucher PA-C Summary Hospital Course Discharge Diagnosis: L4-5 spondylolisthesis, 4-5 spinal stenosis with neurogenic claudication; s/p lumbar fusion Hospital Course: Mr Felton's hospital course was remarkable for low back pain following surgery; he denied lower extremity symptoms, and the leg symptoms he was having prior to surgery had 'miraculously' resolved. On the morning of POD# 2, he was feeling well and wanted to go home. He was eating and voiding without difficulty. He was evaluated by PT throughout his stay, and they felt he was appropriate for discharge home with the help of friends. His pain was controlled with oral medication. Exam Vital Signs (past 8 hours): - 07/31/23 00:00 07/31/23 04:00 Temperature 97.3 F L 97.8 F Pulse Rate 84 72 Respiratory Rate 16 17 Blood Pressure 109/62 112/66 Pulse Oximetry 94 96 Oxygen Flow Rate 0 0 Oxygen Delivery Method Room Air Oxygen Flow Rate 0 Narrative Exam Narrative: 5/5 strength in hip flexors, quadriceps, hamstrings, DF, PF, EHL bilaterally. Sensation to light touch intact throughout BLE. Calves soft and compressible. Dressing placed intraoperatively is CDI. 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 Discharge Plan Discharge Plan Patient Disposition: Home Discharge orders & Medications Prescriptions: New oxycodone 5 mg Tablet 5 mg PO Q3HR PRN (Reason: Pain, Moderate (4-6)) Qty: 60 0RF docusate sodium 100 mg Capsule 100 mg PO BID PRN (Reason: constipation) Qty: 60 1RF hydroxyzine pamoate 25 mg Capsule 25 mg PO Q4HR PRN (Reason: muscle spasm) Qty: 90 0RF Continued sodium,potassium,mag sulfates [Suprep Bowel Prep Kit] 17.5-3.13-1.6 gram recon soln See Rx Instructions PO .COMPLEX Qty: 354 0RF Rx Instructions: take as directed by Physician travoprost 0.004 % Drops 1 drp EYE-BOTH BEDTIME amlodipine 5 mg Tablet 5 mg PO DAILY PRN (Reason: Elevated BP) triamterene-hydrochlorothiazid [Maxzide-25mg] 37.5-25 mg Tablet 1 tab PO QAM acetaminophen 500 mg capsule 500 mg PO Q4H MDD Max 3000 mg per day PRN (Reason: fever or pain) Qty: 90 0RF docusate sodium 100 mg Capsule 100 mg PO BID PRN (Reason: Constipation from narcotic pain meds) Qty: 30 0RF polyethylene glycol 3350 17 gram Powder In Packet 17 g PO BID Qty: 30 0RF tamsulosin 0.4 mg Capsule 0.8 mg PO DAILY Discontinued naproxen sodium 220 mg Tablet 220 mg PO DAILY PRN (Reason: Pain) Follow up/Referrals: Margret Lakhani MD [Physician] - As previously scheduled (Follow up with Kevin Simmons PA-C, on 08/16/2023 @ 11:30 am at [facility] office in [place].) Zoya Hammonds PA-C [Primary Care Provider] - Diet/Activity/Treatments Diet: Diet as Tolerated Activity: No deep bending or twisting at the waist. No lifting more than 10 pounds. Cold/Heat Therapy: Heating pad to low back as needed for pain. Skin/Wound/Dressing Care Report to your healthcare provider any signs of infection, such as:: chills, fever, night sweats, unusual drainage and unusual redness Dressing: May shower. Keep dressing as dry as possible. If dressing becomes wet or dirty, may remove and replace with clean, dry gauze. No bathing or otherwise soaking incisions. Do not apply any creams, lotions, or ointments to incisions. Visit Report/Discharge Packet Instructions: DI for Prescription Opioid Use, DI for Transforaminal Lumbar Interbody Fusion Stand Alone Forms: Patient Portal/API, Stroke Signs & Symptoms, Surgery Discharge Discharge Data Primary Care Provider: Zoya Hammonds
[2023-07-31 08:00] VITALS: BP 131/69; PULSE 71; RESP 16; TEMP 36.8; O2SAT 98
[2023-07-31] MEDS: TRIAMTERENE/HCTZ 37.5/25 CAPSULE 1 CAP PO (08:18)
[2023-07-31] MEDS: NICOTINE 7 MG PATCH TOP (08:18)
[2023-07-31] MEDS: TAMSULOSIN 0.4 MG CAPSULE 0.8 MG PO (08:18)
[2023-07-31] MEDS: polyethylene glycoL 3350 17 GM POWD.PACK PO (08:18)
[2023-07-31] MEDS: DOCUSATE 100 MG CAPSULE PO (08:18)
--- NOTE | 2023-07-31 08:35 | CM.DPC ---
DCP Cont. Reviewed EMR for status updates. PT will meet with pt prior to d/c this morning to discuss mobility and precautions for limiting exercise until pt goes for his Ortho f/u appt., at which time Dr. Lakhani will discuss the appropriateness of moving forward with OP PT or not. Pt has a friend to transport him home today, no further DCP needs identified at this time.
--- NOTE | 2023-07-31 08:40 | OT.IP.EVAL ---
Current Diagnoses Spinal stenosis, lumbar region with neurogenic claudication (07/29/23) Arthrodesis status (07/29/23) Surgery Performed Operation Date: 07/29/23 07:45 Actual Procedures p L4-5 TLIF with posterior instrumentation -Robot - Margret Lakhani MD Past Medical History (Last Updated 07/18/23 @ 10:04 by Katherine Dodson, RN) Dry skin Enlarged prostate Glaucoma HTN (hypertension) Neuropathy DEANA (obstructive sleep apnea) Osteoarthritis Surgical History (Last Updated 07/18/23 @ 10:17 by Katherine Dodson RN) History of total right hip replacement (05/09/22) History of urologic surgery (~1994) Hx of prostate biopsy (~2022) S/P gastroplasty (~1986) Occupational Therapy Inpatient Evaluation/Re-Eval M1 PT/OT-IP Prior Functional Status Start: 07/31/23 08:19 Freq: NEEDED Status: Active Protocol: Document 07/31/23 09:11 [facility] (Rec: 07/31/23 09:25 [facility] [id number]) Medical Review Prior Functional Status Medical History Reviewed Yes Diet/Fluid Consistency Regular Communication WNLs Mobility and Gait Mod I with rollator Activities of Daily Living and IADL's Pt had assistance with cleaning his condo twice a month Social History Household Members none Living Arrangements Apartment/Condo Number of Floors (Floors) One Floor Number of Stairs To Enter/Railing? No steps to enter Home Environment High Toilet,Walk in Shower Home Equipment Front Wheel Walker,Four Wheel Walker,Straight Cane,Shower Seat with Backrest,Hand Held Shower,Grab Bars In Shower Employment Status Retired Additional Social History Comment Pt's friend to stay with him. M2 OT-IP Current Condition Start: 07/31/23 08:19 Freq: Status: Active Protocol: Document 07/31/23 09:11 [facility] (Rec: 07/31/23 09:25 [facility] [id number]) Occupational Therapy Current Condition Current Condition Evaluation Date 07/31/23 Treatment Diagnosis S/P L 4-5 TLIF Diagnosis Onset Date 07/29/23 Post Operative Precautions Lumbar Precautions Log Roll,No Twisting,Limit Bending,Lifting Restriction of 10 lbs,Gait Belt above Incisional Area M3 OT- IP Subjective and Pain Start: 07/31/23 08:19 Freq: Status: Active Protocol: Document 07/31/23 09:11 [facility] (Rec: 07/31/23 09:25 [facility] [id number]) OT- Subjective Occupational Therapy Visit Type Type Initial Evaluation Visit Start Time 08:40 Visit Stop Time 09:05 Total Visit Minutes 25 Occupational Therapy Visit Comments Patient Comments Pt agreed to do OT eval. Patient/Caregiver Goals To go home. OT Pain Assessment Pain When Pain Assessed At Rest Pain Present Pain Present Pain Reported M4 OT- IP ADL's Start: 07/31/23 08:19 Freq: Status: Active Protocol: Document 07/31/23 09:11 [facility] (Rec: 07/31/23 09:25 [facility] [id number]) OT OAR-Ykxw-Jjhywws General Evaluation Self-Feeding Ability Independent OT ADL-Grooming Comments OT Grooming Comments Not performed. OT ADL-Oral Care Comments Oral Care Comments Educated best to spit in to a cup or hinge at his hips to best follow his back precautions. OT ADL-Dressing General Eval Lower Body Dressing Ability Moderate Assistance Areas Needing Assistance Pants/Shorts,Socks Comments OT Dressing Comments Educated to use LB dressing to increased ease and independence for dressing needs and to follow his back precautions. OT ADL-Toileting Comments OT Toileting Comments NOt performed. Suggested to use urinal at home and toilet paper aid as pt states leans forward to wipe. Suggested to use wipes as well. Pt insists that he will continue to just bend forwards to wipe. Pt not wanting to practice wiping while standing. OT ADL-Bathing Comments OT Bathing Comments Not performed. M5 OT- IP IADL's Start: 07/31/23 08:19 Freq: Status: Active Protocol: Document 07/31/23 09:11 [facility] (Rec: 07/31/23 09:25 [facility] [id number]) OT-Instrumental Activities of Daily Living Deficits IADL Deficits Identified Deficits Home Safety Awareness Awareness of Need for Assistance at Home Good Awareness Ability to Problem Solve Emergency Able to Problem Solve Situations Home Safety Comments Pt to have a friend stayy with him at home to assist with his needs. Medication Management Medication Management No Deficits Identified Money Management Money Management No Deficits Identified Meal Preparation Meal Preparation Caregiver Provides Assist Criminal Intelligence Analyst Criminal Intelligence Analyst Caregiver Provides Assist M6 OT- IP Functional Cognition Start: 07/31/23 08:19 Freq: Status: Active Protocol: Document 07/31/23 09:11 [facility] (Rec: 07/31/23 09:25 [facility] [id number]) Cognitive Factors Limiting Selfcare Function Cognitive Ability Level of Alertness Alert Patient Orientation Name,Place,Situation Attention Span Ability Capable of Focused Attention, Capable of Sustained Attention Ability to Follow Commands Able to Follow Multi-Step Commands Safety Awareness Underestimates Need for Assistance Cognitive Comments Cognitive Assessment Comments Pt able to follow commands for back precautions but is a bit insistent in his care. OT- Vision and Hearing OT- Hearing Assessment OT- Hearing Assessment WFL OT- Vision Assessment Visual Acuity Glasses For Reading Visual Attentiveness WFL M7 OT- IP Mobility and Balance Start: 07/31/23 08:19 Freq: Status: Active Protocol: Document 07/31/23 09:11 [facility] (Rec: 07/31/23 09:25 [facility] [id number]) OT-Transfer Assessment Sit to and From Stand Sit to and from Stand Standby Assistance Comments Mobility Comments SBA to stand to the FWW for dressing needs. OT- Balance Assessment Sitting Balance and Reactions Static Sitting Balance Ability Normal Dynamic Sitting Balance Ability Good Standing Balance and Reactions Static Standing Balance Ability Good M9 OT- IP Assessment and Plan Start: 07/31/23 08:19 Freq: Status: Active Protocol: Document 07/31/23 09:11 [facility] (Rec: 07/31/23 09:25 [facility] [id number]) OT Summary Assessment and Plan Potential Rehabilitation Potential Excellent Analytic Complexity at Evaluation Low Summary OT Impairments Pain,Balance,Functional Mobility,Dressing,Toileting, Bathing,Toilet Transfers, Shower Transfers Progress Towards Goals Progressing Toward Goals Assessment Summary Pt low complexity and main barriers are pain, and needing assist for LB dressing and toileting needs . Pt suggested to get LB dressing equipment and toilet paper aid. Pt to have a friend to assist him at home. Pt to go home with assist when medically assist. Goals Grooming Goal Independent Dressing Goal Independent Toileting Goal Independent Bathing Goal Independent Toilet Transfer Goal Independent Shower Transfer Goal Independent Patient/Caregiver Education Goal Demonstrate Post-Op Precautions Days to Meet Goals 7 Frequency of Treatment Frequency Of Treatment Once a Day Treatment Plan OT Treatment Plan ADL Training,Functional Mobility,Patient/Family Education,Discharge Planning Discharge Recommendations OT Discharge Recommendations Home with Assistance Home Equipment Needs Lb dressing equipment, toilet paper aid Transportation Needs at Discharge Private Vehicle
== END 2023-07-31 09:54 | disposition home or self-care (01) | DRG 455 ==
PROVIDERS: Admitting Provider Orthopaedic Surgery Orthopaedic Surgery of the Spine; PCP Physician Assistant; Referring Provider Orthopaedic Surgery Orthopaedic Surgery of the Spine; Visit Provider Orthopaedic Surgery Orthopaedic Surgery of the Spine
DX: M43.16 Spondylolisthesis, lumbar region (principal); M48.062 Spinal stenosis, lumbar region with neurogenic claudication; I10 Essential (primary) hypertension; H40.9 Unspecified glaucoma; N40.0 Benign prostatic hyperplasia without lower urinary tract symptoms; F17.200 Nicotine dependence, unspecified, uncomplicated
CPT/HCPCS: 72100; 76000; 97161; 97165; 97535; C1831; C9290; J0171; J0330; J0690; J1100; J1170; J2405; J2704; J3010; J7613

== ENCOUNTER 2023-09-09 13:51 | Day surgery (SDC) | payer MEDICARE, OTHER, SELFPAY ==
[2022-05-09 10:10] VITALS: BMI 42.0
[2023-07-29 16:06] VITALS: BMI 38.9
--- NOTE | 2023-09-09 | PATH_ITS ---
[facility] Accession Number: [id number] No. of containers..02 Tissue . 01 Material submitted: . PART A: colon - TRANSVERSE POLYP PART B: colon - SIGMOID POLYP . 01 Diagnosis: A. Colon, transverse, polyp biopsy: - Benign polypoid colonic mucosa. - Negative for dysplasia despite multiple levels assessment. -- B. Colon, sigmoid, polyp biopsy: - Tubular adenoma TXN 09/12/2023 1450 Local . 01 Electronically signed: . Kenn Mosher MD, Pathologist NPI- [id number] . 01 Gross description: . Part A: TRANSVERSE POLYP: Received in formalin is 1 fragment(s) of snell, soft tissue measuring 0.3 x 0.2 x 0.1 cm submitted entirely in 1 cassette(s) Part B: SIGMOID POLYP: Received in formalin is 1 fragment(s) of snell, soft tissue measuring 0.4 x 0.3 x 0.2 cm submitted entirely in 1 cassette(s) /AAY 09/10/2023 0301 Local . 01 Pathologist provided ICD-10: Z12.11 . 01 CPT . 112330, [id number] Specimen Comment: A courtesy copy of this report has been sent to [phone] Performed at: 01 [facility] [address] [place] [address] [facility], [place], [place] [id number] MD Quique Tenorio MD Phone: [phone]
[2023-09-09 14:09] VITALS: BP 138/100; PULSE 97; RESP 19; TEMP 36.3; O2SAT 95
--- NOTE | 2023-09-09 14:33 | PM.HP.1 ---
History of Present Illness History of Present Illness Date Patient Seen: 09/09/23 Time Patient Seen: 14:33 Chief complaint: [facility] Narrative: Sisi is a 68-year-old man who is here for colonoscopy. He had 1 15 years ago with a benign polyp removed. He had some recent epigastric pain and went to an ER in [place] where a CT scan was performed. It showed diverticulosis but no obvious cause for the epigastric pain. No family history of colon cancer. [facility] Medical History (Updated 09/09/23 @ 14:34 by Reji Land MD) DEANA (obstructive sleep apnea) Dry skin Osteoarthritis Enlarged prostate HTN (hypertension) Glaucoma Neuropathy Surgical History (Updated 07/31/23 @ 06:56 by Criselda Boucher PA-C) Hx of prostate biopsy (~2022) History of total right hip replacement (05/09/22) History of urologic surgery (~1994) S/P gastroplasty (~1986) Social History household members: none Smoking Status: Current every day smoker alcohol intake: former Meds Home Medications and Allergies Home Medications Medication Instructions Recorded Confirmed Type amlodipine 5 mg tablet 5 mg PO DAILY PRN Elevated BP 05/01/22 07/29/23 History travoprost 0.004 % eye drops 1 drp EYE-BOTH BEDTIME 05/01/22 07/29/23 History triamterene 37.5 1 tab PO QAM 05/01/22 07/18/23 History mg-hydrochlorothiazide 25 mg tablet (Maxzide-25mg) acetaminophen 500 mg capsule 500 mg PO Q4H PRN fever or pain 05/11/22 07/29/23 Rx #90 caps docusate sodium 100 mg capsule 100 mg PO BID PRN Constipation 05/11/22 07/29/23 Rx from narcotic pain meds #30 caps polyethylene glycol 3350 17 gram 17 g PO BID #30 ea 05/11/22 07/29/23 Rx oral powder packet sodium,potassium,mag sulfates 17.5 See Rx Instructions PO .COMPLEX 06/19/23 07/18/23 Rx gram-3.13 gram-1.6 gram oral soln #354 mL (Suprep Bowel Prep Kit) tamsulosin 0.4 mg capsule 0.8 mg PO DAILY 07/18/23 07/29/23 History docusate sodium 100 mg capsule 100 mg PO BID PRN constipation #60 07/31/23 Rx caps hydroxyzine pamoate 25 mg capsule 25 mg PO Q4HR PRN muscle spasm #90 07/31/23 Rx caps oxycodone 5 mg tablet 5 mg PO Q3HR PRN Pain, Moderate 07/31/23 Rx (4-6) #60 tabs sucralfate 1 gram tablet (Carafate) 1 g PO QACHS 09/09/23 09/09/23 History Allergies Allergy/AdvReac Type Severity Reaction Status Date / Time iodine Allergy Severe Anaphylaxis Verified 09/09/23 14:25 merbromin Allergy Severe Hives Verified 09/09/23 14:25 [From Mercurochrome] shellfish derived Allergy Severe Anaphylaxis Verified 09/09/23 14:25 Sulfa (Sulfonamide Allergy Mild I get Verified 09/09/23 14:25 Antibiotics) itchy, cranky, I don't feel good Exam Vital Signs (past 8 hours): - 09/09/23 14:09 Temperature 97.4 F L Pulse Rate 97 H Respiratory Rate 19 Blood Pressure 138/100 H Pulse Oximetry 95 Oxygen Delivery Method Room Air Oxygen Delivery Method Room Air Const General: No acute distress Resp Effort & Inspection: normal respiratory effort Assessment & Plan Assessment and plan (1) Colon cancer screening: Status: Acute Plan We reviewed the risks and benefits of colonoscopy for colon cancer screening and he would like to proceed.
[2023-09-09] MEDS: LACTATED RINGERS 1,000 ML 42 ML IV (14:39)
[2023-09-09 15:11] VITALS: BP 121/84; PULSE 78; RESP 12; TEMP 36.9; O2SAT 94
--- NOTE | 2023-09-09 15:13 | PM.OP.COLON ---
Operative Date/Time/Diagnoses Date of procedure: 09/09/23 Time of procedure: 15:14 Pre-op diagnosis: Colon cancer screening Post-op diagnosis: same Procedure & Clinicians Study performed: Colonoscopy Same procedure as scheduled: Yes Surgeon: Reji Land Procedure Notes Procedure in detail: Surgeon: Reji Land MD Anesthesia: Mahnaz Irving CRNA Procedure: The patient was brought to the endoscopy suite, placed in left lateral decubitus position. The patient was connected to monitoring devices. A time-out was performed. Sedation was administered. Once the patient was adequately sedated, a digital rectal exam was performed and was normal. The scope was then inserted and advanced to the cecum where the appendiceal orifice was identified and photographed. The scope was then slowly withdrawn over greater than 6 minutes. The mucosa was thoroughly inspected. There was a 5 mm polyp in the transverse colon removed with the Jumbo forceps. There were scattered sigmoid diverticula. There was a 5 mm polyp in the sigmoid colon removed with a cold snare. The scope was retroflexed in the rectum. There were internal hemorrhoids. The scope was straightened and removed. The patient was awakened and brought to recovery. Scope withdrawal time: 15 minutes Sedation time: 20 minutes EBL: 5 mL Findings: Diverticulosis and 2 small polyps Post-procedure Disposition: PACU
[2023-09-09 15:18] VITALS: BP 122/82; PULSE 83; RESP 22; O2SAT 97
[2023-09-09 15:21] VITALS: BP 121/75; PULSE 90; RESP 18; O2SAT 96
[2023-09-09 15:28] VITALS: BP 128/86; PULSE 82; RESP 14; O2SAT 97
== END 2023-09-09 15:54 | disposition home or self-care (01) ==
PROVIDERS: PCP Physician Assistant; Referring Provider Surgery; Visit Provider Surgery
PROC: 0DJD8ZZ Inspection of Lower Intestinal Tract, Via Natural or Artificial Opening Endoscopic (ICD-10-PCS; CPT 45378; principal; 2023-09-09 14:45)
DX: K57.30 Diverticulosis of large intestine without perforation or abscess without bleeding (principal); K64.8 Other hemorrhoids; K63.5 Polyp of colon; D12.5 Benign neoplasm of sigmoid colon
CPT/HCPCS: 45385; 45380; J2704

== ENCOUNTER → 2024-05-04 08:33 | Outpatient (CLI) | payer MEDICARE, OTHER, SELFPAY ==
[2023-07-29 16:06] VITALS: BMI 38.9
--- NOTE | 2024-05-04 08:35 | DI.NM.S_ITS ---
PROCEDURE: SD BONE SCAN WHOLE BODY RADIOPHARMACEUTICAL: 20.3 mCi Tc-99m MDP IV. INDICATIONS: PRESENCE OF RT ARTIFICIAL HIP JOINT TECHNIQUE: Delayed whole-body scintigrams were obtained approximately 3-4 hours after intravenous injection of radiotracer. Anterior and posterior views were acquired from vertex to feet. Additional left and right oblique views of the pelvis were obtained. COMPARISON: [facility] [place], , XR PELVIS WITH LATERAL HIP RIGHT, 04/08/2024, 8:56. [facility], [place], PET PSMA PYLARIFY, 01/16/2024, 15:46. FINDINGS: Physiologic uptake is noted within the kidneys and bladder. There is increased uptake within the small bones of the feet, knees and shoulders bilaterally. Very minimal scattered areas of uptake are present within the spine. Photopenia is present at the right hip consistent with arthroplasty. IMPRESSION: Scattered areas of increased uptake suggestive of degenerative change. Areas of scattered uptake within the spine are suspected to be degenerative. However, small areas of metastatic disease within the spine can be indistinguishable from arthritic change on bone scan. Dictated by: Amy Sam M.D. on 05/05/2024 at 14:23 Approved by: Amy Sam M.D. on 05/05/2024 at 14:25
== END ==
LOC: NUCM 08:34
PROVIDERS: PCP Physician Assistant; Referring Provider Orthopaedic Surgery; Visit Provider Orthopaedic Surgery
DX: Z96.641 Presence of right artificial hip joint (principal); Z09 Encounter for follow-up examination after completed treatment for conditions other than malignant neoplasm
CPT/HCPCS: 78306; A9503

== ENCOUNTER → 2024-10-12 14:28 | Outpatient (CLI) | payer MEDICARE, OTHER, SELFPAY ==
[2023-07-29 16:06] VITALS: BMI 38.9
--- NOTE | 2024-10-12 14:29 | DI.MRI.S_ITS ---
PROCEDURE: MR HIP RT WO CON INDICATIONS: rt severe hip pain TECHNIQUE: Noncontrast coronal T1 spin echo and STIR through the bony pelvis. Coronal and axial T2 fast spin echo with fat saturation, sagittal T1 spin echo, and oblique axial T2 fast spin echo with fat saturation through the hip. COMPARISON: [facility] [place], [place], XR PELVIS WITH LATERAL HIP RIGHT, 09/16/2024, 15:11. FINDINGS: Image quality: Diagnostic. Bones and joints: Patient is status post right total hip arthroplasty with susceptibility artifacts limits evaluation of adjacent osseous structures. No gross marrow edema. No acute periprosthetic fracture or dislocation. There is small to moderate amount of right hip joint effusion, no loose bodies. Degenerative disc disease in visualized lower lumbar spine is seen with postsurgical changes from prior spinal fusion. Moderate left hip joint osteoarthritic changes are seen. No evidence of avascular necrosis of left femoral head. No gross suspicious intraosseous lesions. Tendons and ligaments: Low-grade partial-thickness tear involving distal right gluteus medius and minimus tendons at their insertions on greater trochanter is seen. Moderate amount of fluid distending right trochanteric bursa is seen suggestive of bursitis. The nearby proximal iliotibial band also appears intact. The iliopsoas tendon appears thickened, with suggestion of mild edema involving right iliopsoas muscle at the level of right femoral head and neck region. No significant fluid distension of iliopsoas bursa. The origin of the hamstring tendon is intact at the ischial tuberosity. Labrum and cartilage: Not applicable. Soft tissues: There is suggestion of low-grade strain involving the right adductor muscles. Heterogeneously T2 hyperintense signal structure is noted in right lower pelvis along the right iliac vessels and measures up to 3 x 6.2 x 5.3 cm in size series 3, image 23 and series 5, image 1 which may represent enlarged lymph node in this area. Additional smaller T2 hyperintense structure are noted in right inguinal region anterior to the right acetabular measures up to 1.3 x 0.9 cm in size. The proximal sciatic neurovascular bundle appears normal adjacent to the hamstring tendons. No free pelvic fluid. Bladder wall thickness is normal. Genitourinary structures and bowel loops appear normal where visualized. IMPRESSION: 1. Prior right total hip arthroplasty with susceptibility artifacts. No acute periprosthetic fracture. No suspicious bony lesions. Small amount of joint fluid without definite intra-articular loose bodies. 2. Low-grade partial-thickness tear involving distal right gluteus medius and minimus tendons extending to musculotendinous junction with moderate amount of fluid distending right trochanteric bursa concerning for bursitis. 3. Right iliopsoas tendinosis along anterior aspect of right femoral head head and neck. No abnormal iliopsoas bursal fluid distension. Suggestion of low-grade strain involving right ileal psoas muscle at this level. Low-grade strain also noted involving right adductor muscles at the level of right femoral neck. 4. Oval T2 hyperintense structures seen in right lower pelvis along the right iliac vessels as described above, concerning for enlarged lymph nodes along the right iliac chain. Clinical correlation is recommended. No pelvic free fluid. No gross abnormality is seen in urinary bladder and visualized bowel loops. Dictated by: Harpreet Dc M.D. on 10/13/2024 at 21:23 Approved by: Harpreet Dc M.D. on 10/13/2024 at 21:44
== END ==
PROVIDERS: PCP Family Medicine; Referring Provider Nurse Practitioner Family; Visit Provider Nurse Practitioner Family
DX: C61 Malignant neoplasm of prostate (principal); G62.9 Polyneuropathy, unspecified; S76.011A Strain of muscle, fascia and tendon of right hip, initial encounter; Z96.641 Presence of right artificial hip joint; Z92.3 Personal history of irradiation
CPT/HCPCS: 73721

== ENCOUNTER → 2024-10-13 12:28 | Outpatient (CLI) | payer MEDICARE, OTHER, SELFPAY ==
[2023-07-29 16:06] VITALS: BMI 38.9
--- NOTE | 2024-10-13 12:31 | DI.MRI.S_ITS ---
PROCEDURE: MR PELIS WO/W CON INDICATIONS: rt hip pain w radiculopathy, severe TECHNIQUE: Noncontrast axial and oblique coronal T1 spin echo and STIR through the sacroiliac joints. COMPARISON: [facility] [place], [place], XR PELVIS WITH LATERAL HIP RIGHT, 09/16/2024, 15:11. FINDINGS: Image quality: Excellent. Bones: Osteoarthritic changes are noted in bilateral sacroiliac joints with joint space narrowing, subchondral sclerosis. There is mild marrow edema involving left sacrum adjacent to sacroiliac joint and show mild contrast enhancement concerning for active sacroiliitis. No bony ankylosis. There is a focus of T2 hyperintense signal and enhancement involving left side of sacrum at S2 level measures approximately 6 mm in size series 4, image 8 and series 6, image 17. No other suspicious bony lesions are seen. Susceptibility artifacts are noted from right hip prosthesis. Degenerative disc disease in visualized lower lumbar spine is noted with postsurgical changes from prior posterior fusion. Soft tissues: No presacral masses. Rectum appears normal in caliber and wall thickness. No pathologic free pelvic fluid. Prominent lymph nodes are noted along right iliac chain and measures up to 5.9 x 2.9 cm in size series 4, image 23. IMPRESSION: 1. Osteoarthritic changes in bilateral sacroiliac joints with mild marrow edema involving left sacrum adjacent to sacroiliac joint concerning for active left sacroiliitis. No ankylosis. 2. Sub cm focus of signal abnormality involving left sacrum at S2 level. Contrast enhancement is noted in this structure. Given patient's clinical history of prior prostate cancer, focal bony metastasis cannot be excluded. No other suspicious bony lesion is seen. 3. Prominent ana masses along the right external iliac chain which may indicate reactive lymphadenopathy. Malignant lymphadenopathy cannot be excluded. Clinical correlation and follow-up is recommended. Dictated by: Harpreet Dc M.D. on 10/14/2024 at 16:17 Approved by: Harpreet Dc M.D. on 10/14/2024 at 16:36
--- NOTE | 2024-10-13 12:31 | DI.MRI.S_ITS ---
PROCEDURE: MR LUMBAR SPINE WO/W CON INDICATIONS: rt hip pain w radiculopathy, severe TECHNIQUE: Noncontrast sagittal T1 spin echo and T2 fast spin echo, sagittal STIR, axial T1 and T2 fast spin echo through the lumbar spine. In cases with scoliosis, additional coronal T2 fast spin echo may be performed. After the administration of contrast, sagittal and axial T1 spin echo with fat saturation through the lumbar spine. COMPARISON: [facility], MR, MR LUMBAR SPINE WO CON, 11/28/2022, 14:11. [facility], CR, XR LUMBAR SPINE 2 OR 3 VIEWS, 05/21/2024, 15:57. [facility], CT, CT LUMBAR SPINE WO CON, 07/07/2023, 10:01. FINDINGS: Image quality: There is artifact associated with the metallic hardware. Alignment and curvature: Minimal retrolisthesis is seen T11-T12. There is mild anterolisthesis seen at the L4-L5 level. Minimal anterolisthesis is seen at L5-S1. Marrow: Marrow is of normal overall signal. No acute vertebral body compression fractures. No suspicious marrow enhancement. Spinal cord: Conus medullaris terminates at the L1 level. Visualized spinal cord demonstrates normal signal, without suspicious enhancement. Paraspinous soft tissues: No paravertebral masses or abnormal enhancement. T11-T12: Moderate loss of disc height is seen. Moderate disc bulge is seen, with a central/right disc protrusion, as on series 6, image 2. There is a focal annular fissure seen posteriorly. There is at least moderate central canal narrowing seen. There is mild left-sided and moderate right-sided neural foraminal narrowing. When comparison is made with the prior images, these findings are similar. T12-L1: Normal appearance. L1-L2: Mild loss of disc height is seen. Loss of disc signal is seen. Ecrq-hm-plscoalk disc bulge is seen. There is a mild central disc protrusion. No significant neural foraminal or central canal narrowing can be seen. These imaging findings have progressed compared to the prior study. L2-L3: Mild loss of disc height is seen. Loss of disc signal is seen. Mild to moderate disc bulge is seen, with a mild central disc protrusion. Mild to moderate facet hypertrophy is seen. There is moderate left-sided and [id number] right-sided neural foraminal narrowing. Mild to moderate central canal narrowing is seen. There is mild progression of degenerative change from the prior. L3-L4: The disc height and disk signal are relatively well-preserved. Moderate generalized disc bulge is seen. Moderate facet joint hypertrophy is seen. There is at least moderate bilateral neural foraminal narrowing, right worse than left. Moderate central canal narrowing is seen. When comparison is made with the prior images, these findings are similar. L4-L5: Postoperative changes are seen at this level, with bilateral pedicle screws and vertical fixation rods. There is a disc spacer seen at this level. Moderate generalized disc bulge is seen. At least moderate facet hypertrophy is seen. There is at least moderate bilateral neural foraminal narrowing, left worse than right. There is a degree of compression seen upon the exiting nerve roots. At least moderate central canal narrowing is seen. These degenerative changes are clearly improved compared to the preoperative MRI. L5-S1: The disc height is well-preserved. Loss of disc signal is seen at this level. Mild generalized disc bulge is seen. Moderate facet joint hypertrophy is seen. There is at least moderate bilateral neural foraminal narrowing, left worse than right. Vvzq-uz-uomzwoji central canal narrowing is seen. There is slight progression of degenerative change at this level compared to the prior. IMPRESSION: Since the prior MRI, there has been postoperative change at L4-L5, with clear interval improvement at this level. Multiple levels of lumbar spine degenerative change are seen elsewhere, which are progressed at a few levels compared to the prior MRI. No abnormal enhancement is seen. Dictated by: Reese Fenton M.D. on 10/13/2024 at 17:32 Approved by: Reese Fenton M.D. on 10/13/2024 at 17:37
== END ==
PROVIDERS: PCP Family Medicine; Referring Provider Nurse Practitioner Family; Visit Provider Nurse Practitioner Family
DX: C61 Malignant neoplasm of prostate (principal); G62.9 Polyneuropathy, unspecified; M47.816 Spondylosis without myelopathy or radiculopathy, lumbar region; M47.817 Spondylosis without myelopathy or radiculopathy, lumbosacral region; M51.369 Other intervertebral disc degeneration, lumbar region without mention of lumbar back pain or lower extremity pain; M89.9 Disorder of bone, unspecified; I89.9 Noninfective disorder of lymphatic vessels and lymph nodes, unspecified; Z92.3 Personal history of irradiation; Z96.641 Presence of right artificial hip joint; Z98.1 Arthrodesis status
CPT/HCPCS: 72158; 72197; A9579

== ENCOUNTER → 2025-08-08 14:01 | Outpatient (CLI) | payer MEDICARE, OTHER, SELFPAY ==
[2023-07-29 16:06] VITALS: BMI 38.9
--- NOTE | 2025-08-08 14:04 | DI.MRI.S_ITS ---
PROCEDURE: MR THORACIC SPINE WO CON INDICATIONS: Dorsalgia TECHNIQUE: Noncontrast sagittal T1 spine echo and T2 fast spin echo, sagittal STIR, and T2 fast spin echo through the thoracic spine. COMPARISON: None. FINDINGS: Image quality: Excellent. Alignment and Curvature: There is normal bony alignment. Bone Marrow: Marrow is of normal overall signal. No acute vertebral body compression fractures. Spinal Cord: Normal cord signal. Paraspinous Soft Tissues: No paravertebral masses. T11-T12: Right central disc protrusion in facet arthropathy with compression and deformity of the spinal cord. T8-T9: Small left central disc protrusion with mild cord impression. T7-T8: Small right central disc protrusion with mild cord compression. T6-T7: Mild right central disc protrusion with mild cord impression IMPRESSION: Multilevel central disc protrusion with impression upon the cord, most pronounced at T11-T12. No cord signal abnormality. Dictated by: Eugenio Gonzalez M.D. on 08/09/2025 at 9:40 Approved by: Eugenio Gonzalez M.D. on 08/09/2025 at 9:46
--- NOTE | 2025-08-08 14:04 | DI.MRI.S_ITS ---
PROCEDURE: MR LUMBAR SPINE WO CON INDICATIONS: Dorsalgia TECHNIQUE: Noncontrast sagittal T1 spin echo and T2 fast echo, sagittal STIR, and T2 fast spin echo through the lumbar spine. In cases with scoliosis, additional coronal T2 fast spin echo may be performed. COMPARISON: [facility], NM, NM PET CT FUSION SKULL 2 THIGH, 12/02/2024, 17:02. [facility], MR, MR LUMBAR SPINE WO/W CON, 10/13/2024, 12:42. [facility], MR, MR LUMBAR SPINE WO CON, 11/28/2022, 14:11. FINDINGS: Image quality: Excellent. Alignment and Curvature: Anterolisthesis at L4-L5 status post fusion with instrumentation. Bone Marrow: Marrow is of normal overall signal. No acute vertebral body compression fractures. Spinal Cord: Conus medullaris terminates at the L1 level. Visualized cord demonstrates normal signal and size. Paraspinous Soft Tissues: Partially imaged right iliopsoas mass or fluid collection, decreased in size with thick hypointense rim and heterogenous interior signal. T12-L1: No central canal or foraminal stenosis L1-L2: Posterior disc bulge and facet hypertrophy and ligamentum flavum thickening with mild bilateral foraminal stenosis and mild central canal stenosis. L2-L3: Posterior disc bulge and facet hypertrophy with mild central canal narrowing a mild bilateral foraminal narrowing. narrowing L3-L4: Posterior disc bulge and facet hypertrophy with moderate bilateral foraminal narrowing and moderate central canal narrowing. L4-L5: Postoperative level. Anterolisthesis. Moderate left lateral recess narrowing. Moderate to severe bilateral foraminal narrowing. L5-S1: Facet hypertrophy. Moderate to severe bilateral foraminal narrowing. Mild central canal narrowing. IMPRESSION: Stable degenerative and postsurgical changes. Partially imaged right iliopsoas mass or fluid collection is decreased in size. Imaging features suggest hematoma. Further evaluation with MRI of the pelvis with and without contrast recommended. Please protocol for mass and not SI joint or sacrum. Dictated by: Eugenio Gonzalez M.D. on 08/09/2025 at 9:16 Approved by: Eugenio Gonzalez M.D. on 08/09/2025 at 9:39
== END ==
LOC: MRI 14:02
PROVIDERS: PCP Family Medicine; Referring Provider Nurse Practitioner Family; Visit Provider Nurse Practitioner Family
DX: M47.816 Spondylosis without myelopathy or radiculopathy, lumbar region (principal); M47.817 Spondylosis without myelopathy or radiculopathy, lumbosacral region; M51.369 Other intervertebral disc degeneration, lumbar region without mention of lumbar back pain or lower extremity pain; M48.061 Spinal stenosis, lumbar region without neurogenic claudication; M48.07 Spinal stenosis, lumbosacral region; M43.16 Spondylolisthesis, lumbar region; M51.24 Other intervertebral disc displacement, thoracic region; M54.9 Dorsalgia, unspecified; G62.9 Polyneuropathy, unspecified
CPT/HCPCS: 72146; 72148